=== PATIENT | female | born 1940 | race African-American/Black ===

== ENCOUNTER 2019-05-16 00:10 | Inpatient (IN) ==
[2019-05-16] MEDS ORDERED: *HR* Morphine Immed Rel 15 MG TABLET PO STA (01:10)
--- NOTE | 2019-05-16 01:24 | Emergency Department Note ---
Disposition Clinical Impression: Left-sided chest pain Disposition: Admitted As Inpatient Condition: Fair Time of Disposition: 07:16 General Adult HPI - General Chief complaint: ED Chest Pain Stated complaint: abd pain SoB Time Seen by Provider: 05/16/19 00:24 Source: patient, EMS Mode of arrival: EMS Limitations: no limitations Nursing Notes Reviewed: Yes Vital Signs Reviewed: Yes - History of Present Illness HPI Narrative: 78-year-old female history of COPD on 3 L, sleep apnea on CPAP, and CAD presents an emergency department via EMS as a transfer from [facility] for shortness of breath and abdominal pain. Patient is a poor historian. Past few days patient was initiated on CPAP for apnea and states she has not been tolerating it. Earlier this evening approximately 2 hours prior to arrival she reports having some discomfort and experiencing some shortness of breath and left chest pain. States this is the worse pain she has experienced compared to prior chest pain. Reports of some nausea no vomiting. Denies any fevers or cough. It was reported that her oxygen saturations were in the 90s otherwise stable. She states she is at the nursing facility due to her right leg as she is awesome function to the right lower leg. She denies a history of blood clots but states there is no change in swelling to her lower extremities. Pain Scale: 5 - Related Data Home Medications Medication Instructions Recorded Confirmed Atorvastatin Calcium [Lipitor] 20 mg PO 199901/18/19 05/16/19 Clopidogrel [Plavix] 75 mg PO 0600 01/18/19 05/16/19 Dicyclomine [Bentyl] 10 mg PO TID PRN 01/18/19 05/21/19 Enalapril Maleate [Vasotec] 5 mg PO 0600,1600 01/18/19 05/16/19 Famciclovir 500 mg PO 0600,1600 01/18/19 05/16/19 Fluticasone/Vilanterol [Breo 1 puff IH 1800 01/18/19 05/16/19 Ellipta 200-25 Mcg INH] Melatonin 5 mg PO 199901/18/19 05/16/19 Metoprolol [Lopressor] 25 mg PO 0600,1600 01/18/19 05/16/19 Omeprazole [PriLOSEC] 20 mg PO 0600 01/18/19 05/16/19 Primidone [Mysoline] 50 mg PO 0600,1600 01/18/19 05/16/19 Ropinirole HCl [Requip] 0.5 mg PO 2000 01/18/19 05/16/19 Acetaminophen [Tylenol] 650 mg PO BID PRN 04/11/19 05/16/19 Albuterol Sulfate [Proair Hfa] 2 puff PO Q4H PRN 04/27/19 05/16/19 Nystatin 1 appl TP PRN PRN 04/27/19 05/16/19 Previous Rx's Medication Instructions Recorded Ipratropium/Albuterol Neb [Duoneb] 3 ml IH Q6HR PRN #30 inhsol 05/01/19 Furosemide [Lasix] 20 mg PO BID #14 tablet 05/22/19 predniSONE [PredniSONE] 10 mg PO DAILY #21 tablet 05/22/19 Allergies Allergy/AdvReac Type Severity Reaction Status Date / Time aspirin Allergy Rash Verified 04/27/19 19:24 bee venom protein (honey bee) Allergy Swelling Verified 04/27/19 19:24 of Lip/Tongue/Throat codeine Allergy Rash Verified 04/27/19 19:24 All systems ED: reviewed and negative except as stated. Review of Systems: As Per HPI Constitutional: Denies: fever, chills ENT ED: Denies: congestion Cardiovascular: Denies: chest pain Respiratory: Reports: dyspnea. Denies: cough Gastrointestinal: Reports: abdominal pain, nausea. Denies: vomiting Musculoskeletal: Denies: back pain Integumentary: Denies: rash, abrasion Neurological: Denies: headache Past Medical History - Past Medical History Attestation: Yes The following information was validated with the patient. Source: patient Medical history: Reports: CHF, COPD, GERD, hyperlipidemia, hypertension, other Surgical history: Reports: angioplasty/stent, orthopedic, other, pacemaker/AICD Psychiatric history: Reports: anxiety, depression CIGAR HEAD STRINGER history: Reports: no CIGAR HEAD STRINGER history - Social History Smoking Status: Former smoker Smokeless Tobacco Status: No Alcohol use: Reports: none Drug use: Reports: none Physical Exam - General Limitations: no limitations General appearance: alert, in no apparent distress, obese - Head Head exam: atraumatic, normocephalic, normal inspection - Eye Eye exam: Present: normal appearance, EOMI, other (bilateral exophthalmos) - ENT ENT exam: normal exam, normal oropharynx, mucous membranes moist - Neck Neck exam: Present: normal inspection, full ROM, trachea midline - Chest Chest inspection: Present: normal inspection, symmetric chest wall rise, tenderness (Left lower lateral chest wall), other (Pacemaker in left chest wall) - Respiratory Respiratory exam: Present: normal lung sounds bilaterally. Absent: respiratory distress, wheezes - Cardiovascular Cardiovascular exam: Present: regular rate, normal rhythm, normal heart sounds - Abdominal Exam Abdominal exam: Present: soft, tenderness, normal bowel sounds, scar. Absent: Non-Tender, distention, guarding, rebound, rigidity Abdominal tenderness: Present: LUQ - Extremities Exam Extremities exam: Present: normal inspection, full ROM. Absent: tenderness, pedal edema - Back Exam Back exam: Present: normal inspection, full ROM. Absent: tenderness, CVA tenderness (R), CVA tenderness (L) - Neurological Exam Neurological exam: Present: alert, oriented X3 - Psychiatric Psychiatric exam: Present: normal affect, normal mood - Skin Skin exam: Present: warm, dry, intact, normal color. Absent: rash, cyanosis, diaphoresis Course Course Narrative: Patient is a poor historian but appears she is describing some discomfort in her left lower chest wall with associated shortness of breath that started today. She does have a history of CAD with report to stents. She also has some mild swelling in the right leg. To the left. No history of blood clots. Chest pain workup initiated at this time. Will obtain D-dimer at this time as she is considered low risk without any hypoxia tachycardia or history. - Reevaluation(s) Reevaluation #1: Review for labs are quite unremarkable. She appears to have baseline anemia. Her troponin is less than 0.03. Her D dimer is significantly elevated over 1999 and at this time will obtain a CT scan of her chest. Disposition pending workup. Reevaluation #2: Pain has returned with reports of some nausea. CTA of chest without embolism but reveals coronary artery disease. Patient reports midsternal and left chest wall pain. A repeat EKG was performed and did not reveal any ST elevation. She is allergic to aspirin and will hold off on this at this time. Nitro trial and admission for chest pain evaluation. Time: 05:16 Reevaluation #3: After a total of 2 nitroglycerin symptoms near complete resolution. Her blood pressure did drop down to systolic 90. At this time she is stable for mission to the floor. Recommendation for further evaluation cardiac workup. Her last echo was performed on December 2018. - Consultations Consultation #1: Spoke with on-call hospitalist desiree Saez to admit for left side chest pain. No further orders at this time Vital Signs Temperature 99.1 F 05/16/19 00:14 Pulse Rate 69 05/16/19 00:14 Respiratory Rate 20 05/16/19 00:14 Blood Pressure 126/79 05/16/19 00:14 O2 Sat by Pulse Oximetry 97 05/16/19 00:14 Temperature 97.7 F 05/16/19 07:16 Pulse Rate 78 05/16/19 07:16 Respiratory Rate 18 05/16/19 07:16 Blood Pressure 108/61 05/16/19 07:16 O2 Sat by Pulse Oximetry 92 05/16/19 07:16 Oxygen Delivery Oxygen Delivery Nasal Cannula Medical Decision Making - MDM Narrative Medical decision making narrative: Patient was discussed with my attending physician who agrees with ED management and final disposition. They independently evaluated the patient. Please refer to their attestation to this encounter for additional information. This note was generated by [email or web address] voice recognition software and as a result grammatical or spelling errors may occur using this program. - Medical Records Medical records reviewed: Yes I reviewed the patient's medical records. - Lab Data Lab results reviewed: Yes I reviewed the patient's lab results. Result diagrams: 05/20/19 03:25 05/22/19 06:10 Lab Results 05/16/19 05/16/19 05/16/19 Range/Units 01:43 01:43 01:57 WBC 7.5 (4.3-11.1) K/mcL RBC 3.45 L (3.82-4.97) M/mcL Hgb 11.3 L (11.5-15.4) g/dL Hct 36.7 (35.3-44.9) % MCV 106.4 H (83.0-100.0) fL MCH 32.8 (28.0-33.3) pg MCHC 30.8 L (31.6-35.5) g/dL RDW 14.3 (11.5-14.5) % Plt Count 261 (140-400) K/mcL MPV 9.6 (9.4-12.4) fL Immature Gran % 1.1 (0-4) % Seg Neutrophils % 76.3 % Lymphocytes % 15.0 % Monocytes % 5.6 % Eosinophils % 1.7 % Basophils % 0.3 % Neutrophils # 5.7 (1.6-8.9) K/mcL Lymphocytes # 1.1 (0.6-4.6) K/mcL Monocytes # 0.4 (0.0-1.3) K/mcL Eosinophils # 0.1 (0.0-0.6) K/mcL Basophils # 0.0 (0.0-0.2) K/mcL D-Dimer 2192 H (0-500) ng/mLFEU VBG pH (7.32-7.42) pH Units VBG pCO2 (41-51) mmHg VBG pO2 (25-50) mmHg VBG HCO3 (21-27) mEq/L Sodium 139 (136-145) mEq/L Potassium 4.5 (3.5-5.1) mEq/L Chloride 97 L (98-107) mEq/L Carbon Dioxide 37 H (23-29) mEq/L BUN 14 (8-23) mg/dL Creatinine 0.37 L (0.60-1.20) mg/dL Est GFR ( Amer) > 60 (> 60) Est GFR (Non-Af Amer) > 60 (> 60) BUN/Creatinine Ratio 38 H (6-26) Glucose 102 (70-105) mg/dL Calculated Osmolality 289 (280-300) Calcium 9.8 (8.6-10.3) mg/dL Troponin I < 0.03 (< 0.04) ng/mL Lipase 27 (11-82) Units/L 05/16/19 Range/Units 03:10 WBC (4.3-11.1) K/mcL RBC (3.82-4.97) M/mcL Hgb (11.5-15.4) g/dL Hct (35.3-44.9) % MCV (83.0-100.0) fL MCH (28.0-33.3) pg MCHC (31.6-35.5) g/dL RDW (11.5-14.5) % Plt Count (140-400) K/mcL MPV (9.4-12.4) fL Immature Gran % (0-4) % Seg Neutrophils % % Lymphocytes % % Monocytes % % Eosinophils % % Basophils % % Neutrophils # (1.6-8.9) K/mcL Lymphocytes # (0.6-4.6) K/mcL Monocytes # (0.0-1.3) K/mcL Eosinophils # (0.0-0.6) K/mcL Basophils # (0.0-0.2) K/mcL D-Dimer (0-500) ng/mLFEU VBG pH 7.46 H (7.32-7.42) pH Units VBG pCO2 61 H (41-51) mmHg VBG pO2 59 H (25-50) mmHg VBG HCO3 43 H (21-27) mEq/L Sodium (136-145) mEq/L Potassium (3.5-5.1) mEq/L Chloride (98-107) mEq/L Carbon Dioxide (23-29) mEq/L BUN (8-23) mg/dL Creatinine (0.60-1.20) mg/dL Est GFR ( Amer) (> 60) Est GFR (Non-Af Amer) (> 60) BUN/Creatinine Ratio (6-26) Glucose (70-105) mg/dL Calculated Osmolality (280-300) Calcium (8.6-10.3) mg/dL Troponin I (< 0.04) ng/mL Lipase (11-82) Units/L - Radiology Data Radiology results reviewed: Yes I reviewed the patient's radiology results. Chest X-Ray 05/16/19 01:10 IMPRESSION: Moderate cardiomegaly, vascular congestion, bilateral effusions and scattered pulmonary opacities favoring pulmonary edema. No extrapleural air is noted. Trachea is midline. D/ / Shirlene Cha MD / Shirlene Cha MD Interpreting Provider: Shirlene Cha MD Chest CTA 05/16/19 02:33 IMPRESSION: No evidence of pulmonary embolism. Emphysematous changes in the lungs with bibasilar atelectasis. Cardiomegaly with coronary artery disease. RECOMMENDATIONS: Fleischner Society guidelines for follow-up and management of incidentally detected pulmonary nodules: Single Solid Nodule: Nodule size less than 6 mm In a low-risk patient, no routine follow-up. In a high-risk patient, optional CT at 12 months. - Low risk patients include individuals with minimal or absent history of smoking and other known risk factors. - High risk patients include individuals with a history or smoking or known risk factors. Radiology 2017 http://pubs.rsna.org/doi/full/10.1148/radiol.[email or web address] D/ / Shirlene Cha MD / Shirlene Cha MD Interpreting Provider: Shirlene Cha MD - EKG Data EKG #1 EKG attestation: Yes I reviewed and interpreted this EKG. EKG results narrative: EKG performed 26 atrial paced rhythm 80 beats per minute, right bundle branch block. No significant ST elevation or depression. Compared to prior EKG performed 04/26/2018 with similar consistent findings. No acute ischemic changes. Attestation Statement - Attestation Attestation: I have seen this patient with the resident physician, I have personally evaluated this patient. I had reviewed the chart and document dictation by the resident physician and aM in agreement with the information documented by the resident physician. Please see documentation by the resident physician for complete chart including past medical history, family medical history, review of systems, current history and physical and laboratory and imaging studies. I was present for all procedures, provided direct supervision for all procedu res, was present for the entirety of all procedures and provided direct guidance during the procedures. Please see documentation by the resident physician for any procedures performed. I have reviewed all interpretations of EKGs, and reviewed all EKGs performed on patient's as well. I have also reviewed reports of imaging as provided by radiology.
[2019-05-16 02:17] LABS: Basophils % 0.3 %; Eosinophils # 0.1 K/mcL (0.0-0.6); Eosinophils % 1.7 %; Hematocrit 36.7 % (35.3-44.9); Hemoglobin 11.3 g/dL (11.5-15.4); Immature Granulocytes % 1.1 % (0-4); Lymphocytes # 1.1 K/mcL (0.6-4.6); Mean Corpuscular HGB Conc 30.8 g/dL (31.6-35.5); Mean Corpuscular Hemoglobin 32.8 pg (28.0-33.3); Mean Corpuscular Volume 106.4 fL (83.0-100.0); Mean Platelet Volume 9.6 fL (9.4-12.4); Monocytes # 0.4 K/mcL (0.0-1.3); Monocytes % 5.6 %; Neutrophils # 5.7 K/mcL (1.6-8.9); Platelet Count 261 K/mcL (140-400); Red Blood Count 3.45 M/mcL (3.82-4.97); Red Cell Distribution Width 14.3 % (11.5-14.5); Segmented Neutrophils % 76.3 %; White Blood Count 7.5 K/mcL (4.3-11.1)
[2019-05-16 02:21] LABS: BUN/Creatinine Ratio 38 (6-26); Blood Urea Nitrogen 14 mg/dL (8-23); Calcium 9.8 mg/dL (8.6-10.3); Carbon Dioxide 37 mEq/L (23-29); Chloride 97 mEq/L (98-107); Glucose 102 mg/dL (70-105); Lipase 27 Units/L (11-82); Osmolality,Calculated 289 (280-300); Potassium 4.5 mEq/L (3.5-5.1); Sodium 139 mEq/L (136-145); eGFR For African Americans > 60 (> 60); eGFR For Non-African Americans > 60 (> 60)
[2019-05-16 02:22] LABS: Troponin I < 0.03 ng/mL (< 0.04)
[2019-05-16] MEDS ORDERED: Isovue-370 500 ML BOTTLE IVP ONE (02:33)
[2019-05-16 03:13] LABS: VBG HCO3 43 mEq/L (21-27); VBG PCO2 61 mmHg (41-51); VBG PH 7.46 pH Units (7.32-7.42); VBG PO2 59 mmHg (25-50)
--- NOTE | 2019-05-16 04:23 | Emergency Department Note ---
Disposition Clinical Impression: Left-sided chest pain Disposition: Admitted As Inpatient Condition: Fair Referrals: Alisa Rojas MD [Primary Care Provider] - Forms: ED Satisfaction Letter Time of Disposition: 05:16 General Adult HPI - General Chief complaint: ED Chest Pain Stated complaint: abd pain SoB Time Seen by Provider: 05/16/19 00:24 Source: patient, EMS Mode of arrival: EMS Limitations: no limitations Nursing Notes Reviewed: Yes Vital Signs Reviewed: Yes - History of Present Illness Pain Scale: 5 - Related Data Home Medications Medication Instructions Recorded Confirmed Alendronate Sodium 70 mg PO CARDOZA@0600 01/18/19 05/16/19 Atorvastatin Calcium [Lipitor] 20 mg PO 199901/18/19 05/16/19 Clopidogrel [Plavix] 75 mg PO 0600 01/18/19 05/16/19 Dicyclomine [Bentyl] 10 mg PO PRN PRN 01/18/19 05/16/19 Enalapril Maleate [Vasotec] 5 mg PO 0600,1600 01/18/19 05/16/19 Famciclovir 500 mg PO 0600,1600 01/18/19 05/16/19 Fluticasone/Vilanterol [Breo 1 puff IH 1800 01/18/19 05/16/19 Ellipta 200-25 Mcg INH] Melatonin 5 mg PO 199901/18/19 05/16/19 Metoprolol [Lopressor] 25 mg PO 0600,1600 01/18/19 05/16/19 Omeprazole [PriLOSEC] 20 mg PO 0600 01/18/19 05/16/19 Primidone [Mysoline] 50 mg PO 0600,1600 01/18/19 05/16/19 Ropinirole HCl [Requip] 0.5 mg PO 199901/18/19 05/16/19 Acetaminophen [Tylenol] 650 mg PO BID PRN 04/11/19 05/16/19 Albuterol Sulfate [Proair Hfa] 2 puff PO Q4H PRN 04/27/19 05/16/19 Nystatin 1 appl TP PRN PRN 04/27/19 05/16/19 Rizatriptan Benzoate [Maxalt] 10 mg PO PRN PRN 04/27/19 05/16/19 Previous Rx's Medication Instructions Recorded Ipratropium/Albuterol Neb [Duoneb] 3 ml IH Q6HR PRN #30 inhsol 05/01/19 predniSONE [PredniSONE] 10 mg PO DAILY #26 tablet 05/01/19 Allergies Allergy/AdvReac Type Severity Reaction Status Date / Time aspirin Allergy Rash Verified 04/27/19 19:24 bee venom protein (honey bee) Allergy Swelling Verified 04/27/19 19:24 of Lip/Tongue/Throat codeine Allergy Rash Verified 04/27/19 19:24 Constitutional: Denies: fever, chills ENT ED: Denies: congestion Cardiovascular: Denies: chest pain Respiratory: Reports: dyspnea. Denies: cough Gastrointestinal: Reports: abdominal pain, nausea. Denies: vomiting Musculoskeletal: Denies: back pain Integumentary: Denies: rash, abrasion Neurological: Denies: headache Past Medical History - Past Medical History Medical history: Reports: CHF, COPD, GERD, hyperlipidemia, hypertension, other Surgical history: Reports: angioplasty/stent, orthopedic, other, pacemaker/AICD Psychiatric history: Reports: anxiety, depression CREATIVE SERVICES DIRECTOR history: Reports: no CREATIVE SERVICES DIRECTOR history - Social History Smoking Status: Former smoker Smokeless Tobacco Status: No Alcohol use: Reports: none Drug use: Reports: none Physical Exam - General Limitations: no limitations General appearance: alert, in no apparent distress, obese Course Vital Signs Temperature 99.1 F 05/16/19 00:14 Pulse Rate 69 05/16/19 00:14 Respiratory Rate 20 05/16/19 00:14 Blood Pressure 126/79 05/16/19 00:14 O2 Sat by Pulse Oximetry 97 05/16/19 00:14 Temperature 99.1 F 05/16/19 00:14 Pulse Rate 79 05/16/19 05:10 Respiratory Rate 18 05/16/19 05:10 Blood Pressure 139/107 05/16/19 05:10 O2 Sat by Pulse Oximetry 91 05/16/19 05:10 Oxygen Delivery Oxygen Delivery Nasal Cannula Medical Decision Making - Lab Data Result diagrams: 05/16/19 01:43 05/16/19 01:43 Lab Results 05/16/19 05/16/19 05/16/19 Range/Units 01:43 01:43 01:57 WBC 7.5 (4.3-11.1) K/mcL RBC 3.45 L (3.82-4.97) M/mcL Hgb 11.3 L (11.5-15.4) g/dL Hct 36.7 (35.3-44.9) % MCV 106.4 H (83.0-100.0) fL MCH 32.8 (28.0-33.3) pg MCHC 30.8 L (31.6-35.5) g/dL RDW 14.3 (11.5-14.5) % Plt Count 261 (140-400) K/mcL MPV 9.6 (9.4-12.4) fL Immature Gran % 1.1 (0-4) % Seg Neutrophils % 76.3 % Lymphocytes % 15.0 % Monocytes % 5.6 % Eosinophils % 1.7 % Basophils % 0.3 % Neutrophils # 5.7 (1.6-8.9) K/mcL Lymphocytes # 1.1 (0.6-4.6) K/mcL Monocytes # 0.4 (0.0-1.3) K/mcL Eosinophils # 0.1 (0.0-0.6) K/mcL Basophils # 0.0 (0.0-0.2) K/mcL D-Dimer 2192 H (0-500) ng/mLFEU VBG pH (7.32-7.42) pH Units VBG pCO2 (41-51) mmHg VBG pO2 (25-50) mmHg VBG HCO3 (21-27) mEq/L Sodium 139 (136-145) mEq/L Potassium 4.5 (3.5-5.1) mEq/L Chloride 97 L (98-107) mEq/L Carbon Dioxide 37 H (23-29) mEq/L BUN 14 (8-23) mg/dL Creatinine 0.37 L (0.60-1.20) mg/dL Est GFR ( Amer) > 60 (> 60) Est GFR (Non-Af Amer) > 60 (> 60) BUN/Creatinine Ratio 38 H (6-26) Glucose 102 (70-105) mg/dL Calculated Osmolality 289 (280-300) Calcium 9.8 (8.6-10.3) mg/dL Troponin I < 0.03 (< 0.04) ng/mL Lipase 27 (11-82) Units/L 05/16/19 Range/Units 03:10 WBC (4.3-11.1) K/mcL RBC (3.82-4.97) M/mcL Hgb (11.5-15.4) g/dL Hct (35.3-44.9) % MCV (83.0-100.0) fL MCH (28.0-33.3) pg MCHC (31.6-35.5) g/dL RDW (11.5-14.5) % Plt Count (140-400) K/mcL MPV (9.4-12.4) fL Immature Gran % (0-4) % Seg Neutrophils % % Lymphocytes % % Monocytes % % Eosinophils % % Basophils % % Neutrophils # (1.6-8.9) K/mcL Lymphocytes # (0.6-4.6) K/mcL Monocytes # (0.0-1.3) K/mcL Eosinophils # (0.0-0.6) K/mcL Basophils # (0.0-0.2) K/mcL D-Dimer (0-500) ng/mLFEU VBG pH 7.46 H (7.32-7.42) pH Units VBG pCO2 61 H (41-51) mmHg VBG pO2 59 H (25-50) mmHg VBG HCO3 43 H (21-27) mEq/L Sodium (136-145) mEq/L Potassium (3.5-5.1) mEq/L Chloride (98-107) mEq/L Carbon Dioxide (23-29) mEq/L BUN (8-23) mg/dL Creatinine (0.60-1.20) mg/dL Est GFR ( Amer) (> 60) Est GFR (Non-Af Amer) (> 60) BUN/Creatinine Ratio (6-26) Glucose (70-105) mg/dL Calculated Osmolality (280-300) Calcium (8.6-10.3) mg/dL Troponin I (< 0.04) ng/mL Lipase (11-82) Units/L Attestation Statement - Attestation Attestation: I have seen this patient with the resident physician, I have personally evaluated this patient. I had reviewed the chart and document dictation by the resident physician and aM in agreement with the information documented by the resident physician. Please see documentation by the resident physician for complete chart including past medical history, family medical history, review of systems, current history and physical and laboratory and imaging studies. I was present for all procedures, provided direct supervision for all procedures, was present for the entirety of all procedures and provided direct guidance during the procedures. Please see documentation by the resident physician for any procedures performed. I have reviewed all interpretations of EKGs, and reviewed all EKGs performed on patient's as well. I have also reviewed reports of imaging as provided by radiology. Patient presented emergency department with chief complaint of left-sided chest pain, just at her rib level, she states that seems to be more in her chest and her abdomen but is right at the left anterior region of her lower ribs. She states that it seemed to start him 11:00 tonight, and associates this with being started on new CPAP and this seemed to bother her but states that she is not sure. She states that it continues to hurt even now she is off CPAP. The patient states she maybe feels little bit short of breath. She describes a sharp pain but also achy pain. It is nonradiating. She states maybe she feels a little dizzy. She denies headache or neck pain or jaw pain. She states she always feels short of breath secondary to her history of COPD and CHF states that it is not really different or worse in that regard. She denies significant nausea vomiting diarrhea or black or bloody stool. She denies any acute lower extremity swelling, she states that she has had some right lower extremity swelling for quite a while, and states that she is in a correction facility currently secondary to problems with her right leg strength in her ability to walk but she has not had any history of blood clots in the past she has not noticed any increased swelling of her legs. She has had no new calf pain. She denies fevers or chills. She does report that she has recently been hospitalized several times but she is not quite sure exactly for what she states that it has been for different things for pneumonia for which she reports is potential heart attacks. She states she has been admitted at least 5 times in the last few months. On physical examination she is alert and oriented 3, nontoxic in appearance in no respiratory distress. Lungs are slightly diminished at the bases bilaterally , no focal rales rhonchi or crackles noted. No obvious JVD but somewhat limited by body habitus. Cardiovascular regular rhythm, 2/6 systolic murmur, there is a pacemaker palpable in the left chest wall is nontender. Her lower chest on the left is at least somewhat tender, and at least partially reproduces her pain with palpation. No evidence of zoster on the chest. There is an occasional auscultated PAC on exam. Abdomen is soft, no significant tenderness of the abdomen, and tenderness seems primarily palpable above the level of the ribs. Bilateral lower extremities reveal no significant edema, there is slight right lower extremity edema compared to the left, measuring approximately 1 cm greater diameter there is no calf tenderness there is no warmth there is no erythema there is no palpable cord there is no Homans sign. EKG demonstrated both sinus beats and atrial paced complexes, with a right bundle-branch block pattern, compared to prior EKG there is no acute change. No acute ST elevation or ST depression, stable T-wave inversion in V3 consistent with right bundle. CBC basic metabolic profile cardiac enzymes were all within acceptable limits d- dimer was elevated at over 2000 she was sent for a CT scan of the chest, which demonstrated no PE, positive emphysema changes with bibasilar atelectasis cardiomegaly with coronary artery disease. Patient was given oral morphine for pain improvement of her symptoms. Secondary to patient's were explained left-sided chest pain no recent cardiac evaluation apart from an echocardiogram 4 months ago, with a history of coronary artery disease, with a history of pacemaker, with left-sided chest pain and dizziness, with recurrence now of her chest pain after morphine, she will be admitted to the hospital for further evaluation and management of left-sided chest pain.
[2019-05-16] MEDS ORDERED: Ondansetron 4 MG/2 ML VIAL IVP ONE (04:58)
[2019-05-16] MEDS: Nitroglycerin 0.4 MG TAB.SUBL SL PRN ×2 (05:09→05:19)
[2019-05-16] MEDS ORDERED: *HR* Midazolam HCl 5 MG/5 ML VIAL IVP ONE ×2 (09:10→18:11)
[2019-05-16] MEDS ORDERED: *HR* Etomidate 20 MG/10 ML AMPUL IVP ONE (09:10)
[2019-05-16] MEDS ORDERED: Naloxone 0.4 MG/ML INJ ONE (09:59)
[2019-05-16] MEDS: Naloxone 0.4 MG/ML INJ IVP PRN ×5 (10:11→16:09)
[2019-05-16] MEDS ORDERED: Acetaminophen 325 MG TABLET PO PRN (10:26)
--- NOTE | 2019-05-16 10:38 | Internal Med History&Physical ---
<Alisa Ellsworth - Last Filed: 05/16/19 13:43> Date of Encounter: 05/16/19 Time of Encounter: 10:29 Internal Medicine - H&P: HPI Chief complaint: chest pain Admitted From: Emergency Dept Plans for Post Hospital Care: [facility] History of present illness: Ms. Abbott is a 78 year old female with PMHx of diastolic CHF, HTN, HLD, COPD (on 2L home oxygen), CAD. patient presented from [facility] to ED with chief complaint of chest pain. Upon my evaluation, patient was very obtunded and was very minimally responsive. She did not respond to sternal rub. She received one dose of Narcan and was more awake but did not answer questions appropriately and was thus a poor historian. Per nursing reports, this is not her baseline. Her baseline is that she is able to talk, answer question and interact with others. Per ED documentation, patient was having left sided chest pain that was worse compared to her prior chest pain with oxygen saturations in the 90s. In Ed, she recieved PO morphine, and nitroglycerin x2 and was admitted for further workup of chest pain. Past Med Surg Social Fam HX - Past Medical History Medical history: CHF, COPD, GERD, hyperlipidemia, hypertension, other Additional medical history: IBS, AAA, restless leg syndrome Psychiatric history: anxiety, depression - Past Surgical History Surgical History: angioplasty/stent, orthopedic, other, pacemaker/AICD Additional surgical history: LTKA, RTSA, left femur corinna. - Social History Smoking Status: Former smoker Smokeless Tobacco Status: No Alcohol use: none Drug use: none - Family History Mother Adopted: Yes Father Adopted: Yes Internal Medicine - H&P: Meds Alendronate Sodium 70 mg PO CARDOZA@0600 01/18/19 [History] Atorvastatin Calcium [Lipitor] 20 mg PO 199901/18/19 [History] Clopidogrel [Plavix] 75 mg PO 0600 01/18/19 [History] Dicyclomine [Bentyl] 10 mg PO PRN PRN 01/18/19 [History] Enalapril Maleate [Vasotec] 5 mg PO 0600,1600 01/18/19 [History] Famciclovir 500 mg PO 0600,1600 01/18/19 [History] Fluticasone/Vilanterol [Breo Ellipta 200-25 Mcg INH] 1 puff IH 1800 01/18/19 [History] Melatonin 5 mg PO 199901/18/19 [History] Metoprolol [Lopressor] 25 mg PO 0600,1600 01/18/19 [History] Omeprazole [PriLOSEC] 20 mg PO 0600 01/18/19 [History] Primidone [Mysoline] 50 mg PO 0600,1600 01/18/19 [History] Ropinirole HCl [Requip] 0.5 mg PO 199901/18/19 [History] Acetaminophen [Tylenol] 650 mg PO BID PRN 04/11/19 [History] Albuterol Sulfate [Proair Hfa] 2 puff PO Q4H PRN 04/27/19 [History] Nystatin 1 appl TP PRN PRN 04/27/19 [History] Rizatriptan Benzoate [Maxalt] 10 mg PO PRN PRN 04/27/19 [History] Ipratropium/Albuterol Neb [Duoneb] 3 ml IH Q6HR PRN #30 inhsol 05/01/19 [Rx] Allergy/AdvReac Type Severity Reaction Status Date / Time aspirin Allergy Rash Verified 04/27/19 19:24 bee venom protein (honey bee) Allergy Swelling Verified 04/27/19 19:24 of Lip/Tongue/Throat codeine Allergy Rash Verified 04/27/19 19:24 ROS unobtainable: due to mental status All Systems PM: A 10-system review of systems was performed and is negative for pertinent findings except as documented above in the HPI. - Constitutional Vitals: Temp Pulse Resp BP Pulse Ox 97.7 F 78 18 108/61 92 05/16/19 07:16 05/16/19 07:16 05/16/19 07:16 05/16/19 07:16 05/16/19 07:16 Exam: intermittently alert. minimally responsive . - Head Head exam: Present: atraumatic, normocephalic - Neck Neck exam general surgery: Present: supple, trachea midline - Respiratory Respiratory exam: Present: CTAB - Cardiovascular Cardiovascular exam: Present: RRR, +S1, +S2. Absent: gallop, rubs, systolic murmur - GI/Abdominal GI/Abdominal exam: Present: normal bowel sounds, soft. Absent: distended, tenderness - Extremities Exam Extremities exam: Absent: cyanotic, pedal edema - Neurological Exam Neurological exam: Present: alert Additional comments: minimally responsive, intermittently alert. does not answer questions properly. - Skin Skin exam: Present: intact, normal color Internal Med - H&P Results - Labs CBC & Chem 7: 05/16/19 01:43 05/16/19 01:43 Labs: Short CBC 05/16/19 Range/Units 01:43 WBC 7.5 (4.3-11.1) K/mcL Hgb 11.3 L (11.5-15.4) g/dL Hct 36.7 (35.3-44.9) % Plt Count 261 (140-400) K/mcL Neutrophils # 5.7 (1.6-8.9) K/mcL BMP 05/16/19 01:43 Sodium 139 Potassium 4.5 Chloride 97 L Carbon Dioxide 37 H BUN 14 Creatinine 0.37 L Glucose 102 Calcium 9.8 Cardiac Enzymes 05/16/19 Range/Units 01:43 Troponin I < 0.03 (< 0.04) ng/mL - ABG Interpretation ABG results: 05/16/19 03:10 VBG pH 7.46 H VBG pCO2 61 H VBG pO2 59 H VBG HCO3 43 H - Impressions ITS Impressions Chest X-Ray 05/16/19 01:10 IMPRESSION: Moderate cardiomegaly, vascular congestion, bilateral effusions and scattered pulmonary opacities favoring pulmonary edema. No extrapleural air is noted. Trachea is midline. D/ / Shirlene Cha MD / Shirlene Cha MD Interpreting Provider: Shirlene Cha MD Chest CTA 05/16/19 02:33 IMPRESSION: No evidence of pulmonary embolism. Emphysematous changes in the lungs with bibasilar atelectasis. Cardiomegaly with coronary artery disease. Mild mediastinal adenopathy. Ill-defined focal nodule. RECOMMENDATIONS: Fleischner Society guidelines for follow-up and management of incidentally detected pulmonary nodules: Single Solid Nodule: Nodule size less than 6 mm In a low-risk patient, no routine follow-up. In a high-risk patient, optional CT at 12 months. - Low risk patients include individuals with minimal or absent history of smoking and other known risk factors. - High risk patients include individuals with a history or smoking or known risk factors. Radiology 2017 http://pubs.rsna.org/doi/full/10.1148/radiol.6983096552 D/ / Shirlene Cha MD / Shirlene Cha MD Interpreting Provider: Shirlene Cha MD - Assessment and Plan (1) Acute on chronic respiratory failure with hypoxia and hypercapnia Current Visit: Yes Status: Acute Assessment and plan: patient was very minimally responsive since arrival to the floor from ED and was not responding to sternal rub. Around 10:00 patient was evaluated at bedside and was minimally interactive upon conversation. she received narcan x2, and her response was minimal. ABG was ordered and showed CO2 130. patient was transferred to ICU stat and critical care team was consulted. head CT ordered etiology of unresponsiness likely secondary to acute on chronic respiratory failure from CO2 narcosis patient has been admitted before to hospital with prior CO2>150 appreciate recs from critical care and social work team. (2) Chest pain Current Visit: No Status: Acute Assessment and plan: per ED reports, patient arrived from correction with left sided chest pain. EKG reviewed D dimer elevated. patient minimally responsive, unable to give good history CTA showed no evidence of PE. There was emphysematous changes in lungs with bibasilar atalectasis. last echo from 01/17/19 showed EF 55-60% with LV wall thickness not well obta ined, gross basal septal hypertrophy, mild LV diastolic dysfunction, mild tricuspid regurgitation, no pulmonary hypertation. Plan: trend troponins. Qualifiers: Chest pain type: pleurodynia Qualified Code(s): R07.81 - Pleurodynia (3) Unresponsive episode Current Visit: No Status: Resolved Assessment and plan: plan as above (4) CAD (coronary artery disease) Current Visit: No Status: Chronic Qualifiers: Coronary Disease-Associated Artery/Lesion type: [place] artery [place] vs. transplanted heart: [place] heart Associated angina: without angina Qualified Code(s): I25.10 - Atherosclerotic heart disease of [place] coronary artery without angina pectoris (5) CHF (congestive heart failure) Current Visit: No Status: Acute Assessment and plan: not in acute exacerbation. continue to monitor. Qualifiers: Heart failure type: diastolic Heart failure chronicity: unspecified Qualified Code(s): I50.30 - Unspecified diastolic (congestive) heart failure (6) DVT prophylaxis Current Visit: No Status: Acute Assessment and plan: heparin SQ - Time Spent With Patient Total time spent is greater than 50% in coordination of care (as documented) at patient's floor/unit and/or counseling patient: <Hilary Jefferson Z - Last Filed: 05/17/19 11:27> Date of Encounter: 05/16/19 Internal Medicine - H&P: HPI History of present illness: Ms. Abbott is a 78 year old female All Systems PM: A 10-system review of systems was performed and is negative for pertinent findin gs except as documented above in the HPI. - Constitutional Vitals: Temp Pulse Resp BP Pulse Ox 99.4 F 83 20 118/65 94 05/17/19 04:20 05/17/19 11:00 05/17/19 11:00 05/17/19 11:00 05/17/19 11:00 Internal Med - H&P Results - Labs CBC & Chem 7: 05/17/19 04:00 05/17/19 04:00 Labs: Short CBC 05/17/19 Range/Units 04:00 WBC 8.3 (4.3-11.1) K/mcL Hgb 11.3 L (11.5-15.4) g/dL Hct 37.4 (35.3-44.9) % Plt Count 273 (140-400) K/mcL Neutrophils # 7.8 (1.6-8.9) K/mcL BMP 05/17/19 04:00 Sodium 142 Potassium 4.5 Chloride 94 L Carbon Dioxide 37 H BUN 20 Creatinine 0.59 L Glucose 127 H Calcium 10.0 Cardiac Enzymes 05/16/19 05/16/19 Range/Units 10:38 16:05 Troponin I < 0.03 < 0.03 (< 0.04) ng/mL - ABG Interpretation ABG results: 05/16/19 05/16/19 05/16/19 03:10 11:17 12:57 ABG pH 7.11 L* 7.15 L* ABG pCO2 130 H* 131 H* ABG pO2 102 86 ABG HCO3 41 H 46 H ABG Total CO2 45 H 50 H ABG O2 Saturation 94 L 91 L ABG Base Excess 6 H 11 H VBG pH 7.46 H VBG pCO2 61 H VBG pO2 59 H VBG HCO3 43 H 05/16/19 05/16/19 05/17/19 15:28 19:41 04:06 ABG pH 7.21 L 7.42 D 7.55 H ABG pCO2 111 H* D 67 H D 46 H ABG pO2 82 L 55 L 64 L ABG HCO3 44 H 44 H 40 H ABG Total CO2 48 H 46 H 42 H ABG O2 Saturation 92 L 87 L 94 L ABG Base Excess 11 H 16 H 16 H VBG pH VBG pCO2 VBG pO2 VBG HCO3 - Impressions ITS Impressions Chest X-Ray 05/16/19 01:10 IMPRESSION: Moderate cardiomegaly, vascular congestion, bilateral effusions and scattered pulmonary opacities favoring pulmonary edema. No extrapleural air is noted. Trachea is midline. D/ / Shirlene Cha MD / Shirlene Cha MD Interpreting Provider: Shirlene Cha MD Chest CTA 05/16/19 02:33 IMPRESSION: No evidence of pulmonary embolism. Emphysematous changes in the lungs with bibasilar atelectasis. Cardiomegaly with coronary artery disease. Mild mediastinal adenopathy. Ill-defined focal nodule. RECOMMENDATIONS: Fleischner Society guidelines for follow-up and management of incidentally detected pulmonary nodules: Single Solid Nodule: Nodule size less than 6 mm In a low-risk patient, no routine follow-up. In a high-risk patient, optional CT at 12 months. - Low risk patients include individuals with minimal or absent history of smoking and other known risk factors. - High risk patients include individuals with a history or smoking or known risk factors. Radiology 2017 http://pubs.rsna.org/doi/full/10.1148/radiol.5483771704 D/ / Shirlene Cha MD / Shirlene Cha MD Interpreting Provider: Shirlene Cha MD Head CT 05/16/19 10:58 IMPRESSION: No acute intracranial abnormality. Mild senescent changes. D/ / Rebel Montemayor / Rebel Montemayor Interpreting Provider: Rebel Montemayor Chest X-Ray 05/16/19 18:05 IMPRESSION: 1. Chest radiograph: Findings of congestive heart failure with unchanged bibasilar consolidation and bilateral pleural effusion comparing with study performed earlier today. 2. Calcific atherosclerosis aorta. 3. Cardiomegaly. 4. KUB: Unremarkable bowel gas pattern. 5. NG tube extends below the left hemidiaphragm, into the upper abdomen, tip overlying the expected level of the stomach, left upper quadrant. D/ / Rebel Montemayor / Rebel Montemayor Interpreting Provider: Rebel Montemayor X-Ray 05/16/19 18:15 IMPRESSION: 1. Chest radiograph: Findings of congestive heart failure with unchanged bibasilar consolidation and bilateral pleural effusion comparing with study performed earlier today. 2. Calcific atherosclerosis aorta. 3. Cardiomegaly. 4. KUB: Unremarkable bowel gas pattern. 5. NG tube extends below the left hemidiaphragm, into the upper abdomen, tip overlying the expected level of the stomach, left upper quadrant. D/ / Rebel Montemayor / Rebel Montemayor Interpreting Provider: Rebel Montemayor - Summary of Assessment and Plan Summary of Assessment and Plan: I performed a history and physical examination of the patient and discussed his management with the resident. I reviewed the residents note and agree with the documented findings and plan of care. - Time Spent With Patient Total time spent is greater than 50% in coordination of care (as documented) at patient's floor/unit and/or counseling patient: - Attending Attestation I performed a history and physical examination of the patient and discussed his management with the resident. I reviewed the residents note and agree with the documented findings and plan of care.
[2019-05-16 11:27] LABS: ABG Base Excess 6 mEq/L (-2 to 3); ABG HCO3 41 mEq/L (21-27); ABG Oxygen Saturation 94 % (95-98); ABG PCO2 130 mmHg (35-45); ABG PH 7.11 pH Units (7.32-7.45); ABG PO2 102 mmHg (85-104); ABG TCO2 45 mEq/L (20-26)
--- NOTE | 2019-05-16 11:49 | Pulmonology Consult Note ---
<Loco Tabor S - Last Filed: 05/16/19 17:01> Date of Encounter: 05/16/19 Time of Encounter: 14:34 Assessment and Plan (1) Acute on chronic respiratory failure with hypoxia and hypercapnia Current Visit: Yes Status: Acute Patient arrived to the ICU around noon today after being found nonresponsive and hypoxic - received two doses of narcan - ABG showed a pH of 7.11 and pCO2 of 130 Troponin negative D-dimer elevated at [address] chest negative for pulmonary embolism, emphysematous changes in the lungs with bibasilar atelectasis, cardiomegaly, CAD At this time the pt remains afebrile, no white count, no evidence of infxn causing AECOPD and respiratory failure, will not start abx at this time Repeat ABG showing pH 7.21, pCO2 111, pO2 82, HCO3 44 Plan: - EPIV insertion - monitoring in ICU - BiPAP prn and hs - IV solumedrol q8hr - [facility] - respiratory infxn panel pending - will continue to monitor breathing status and plan to transfer back to floor if stable tomorrow (2) CHF (congestive heart failure) Current Visit: No Status: Acute NOT in acute exacerbation. Previous ECHO from Dec 2018 showing LVEF 55-60%. LV wall thickness not well obtained. Grossly, there is basal septal hypertrophy. Qualifiers: Heart failure type: diastolic Heart failure chronicity: unspecified Qualified Code(s): I50.30 - Unspecified diastolic (congestive) heart failure (3) DVT prophylaxis Current Visit: Yes Status: Acute sq heparin (4) Pulmonary nodule Current Visit: No Status: Acute Noted on CT scan of chest. Needs outpatient follow up. (5) Weakness generalized Current Visit: No Status: Acute PTOT consulted. SW consulted. (6) COPD exacerbation Current Visit: Yes Status: Acute See plan as above. Possibly viral in origin. (7) Left-sided chest pain Current Visit: Yes Status: Acute Per the ED reports, [facility] sided [facility]. EKG reviewed, no acute changes D dimer elevated at 2192 Troponin negative x3 CTA showed no evidence of PE. There was emphysematous changes in lungs with bibasilar atalectasis. Last echo from 01/17/19 showed EF 55-60% with LV wall thickness not well obtained, gross basal septal hypertrophy, mild LV diastolic dysfunction, mild tricuspid regurgitation, no pulmonary hypertation. Will monitor in ICU overnight and likely move out to floor if maintaining airway. History of Present Illness Consult date: 05/16/19 Requesting physician: Alisa Ellsworth Reason for consult: COPD, other (acute respiratory failure) Chief complaint: chest pain History of present illness: Ms. Abbott is a 78yo female with PMH of CHF, COPD, GERD, hyperlipidemia, hypertension, and restless leg syndrome. At home she wears 2 L oxygen. She is presenting from [facility] to ED with chief complaint of chest pain. She was seen by Dr. Ellsworth and brought emergently to the ICU in respiratory distress on BiPAP. Per review of the chart, she came to the ER and was having left sided chest pain that was worse compared to her prior chest pain with oxygen saturations in the 90s. In ED, she recieved PO morphine, and nitroglycerin x2 and was admitted for further workup of chest pain. Troponin negative. Upon evaluation by hospitalist team, she was obtunded and was very minimally responsive. She did not respond to sternal rub. She received one dose of Narcan and was more awake but did not answer questions appropriately and was thus a poor historian. Per nursing reports, this is not her baseline. Her baseline is that she is able to talk, answer question and interact with others. She was stabilized with increased oxygenation on BiPAP and will be observed in the ICU in case of need for emergent intubation. Per chart review, she has had previous episodes of similar presentations requiring intubation. Past Med Surg Social Fam HX - Past Medical History Medical history: CHF, COPD, GERD, hyperlipidemia, hypertension, other Additional medical history: IBS, AAA, restless leg syndrome Psychiatric history: anxiety, depression - Past Surgical History Surgical History: angioplasty/stent, orthopedic, other, pacemaker/AICD Additional surgical history: LTKA, RTSA, left femur corinna. - Social History Smoking Status: Former smoker Smokeless Tobacco Status: No Alcohol use: none Drug use: none - Family History Mother Adopted: Yes Father Adopted: Yes Medications and Allergies Alendronate Sodium 70 mg PO CARDOZA@0600 01/18/19 [History] Atorvastatin Calcium [Lipitor] 20 mg PO 199901/18/19 [History] Clopidogrel [Plavix] 75 mg PO 0600 01/18/19 [History] Dicyclomine [Bentyl] 10 mg PO PRN PRN 01/18/19 [History] Enalapril Maleate [Vasotec] 5 mg PO 0600,1600 01/18/19 [History] Famciclovir 500 mg PO 0600,1600 01/18/19 [History] Fluticasone/Vilanterol [Breo Ellipta 200-25 Mcg INH] 1 puff IH 1800 01/18/19 [History] Melatonin 5 mg PO 199901/18/19 [History] Metoprolol [Lopressor] 25 mg PO 0600,1600 01/18/19 [History] Omeprazole [PriLOSEC] 20 mg PO 0600 01/18/19 [History] Primidone [Mysoline] 50 mg PO 0600,1600 01/18/19 [History] Ropinirole HCl [Requip] 0.5 mg PO 199901/18/19 [History] Acetaminophen [Tylenol] 650 mg PO BID PRN 04/11/19 [History] Albuterol Sulfate [Proair Hfa] 2 puff PO Q4H PRN 04/27/19 [History] Nystatin 1 appl TP PRN PRN 04/27/19 [History] Rizatriptan Benzoate [Maxalt] 10 mg PO PRN PRN 04/27/19 [History] Ipratropium/Albuterol Neb [Duoneb] 3 ml IH Q6HR PRN #30 inhsol 05/01/19 [Rx] Allergy/AdvReac Type Severity Reaction Status Date / Time aspirin Allergy Rash Verified 04/27/19 19:24 bee venom protein (honey bee) Allergy Swelling Verified 04/27/19 19:24 of Lip/Tongue/Throat codeine Allergy Rash Verified 04/27/19 19:24 ROS unobtainable: due to mental status All Systems: The remainder of the systems were reviewed and are negative Physical Examination Vital Signs: Vital Signs, Last 4 Hours Resp Pulse Ox 05/16/19 11:20 14 92 General appearance: lethargic, appears uncomfortable Eyes: nonicteric ENT: oropharynx dry Effort: very labored Auscultation: bilateral: diminished breath sounds Cardiovascular: regular rate and rhythm Gastrointestinal: soft, non-tender, non-distended Integumentary: normal Extremities: no edema, no clubbing, pink and warm Musculoskeletal: no deformities unable to assess due to mental status anxious Results - Laboratory Findings CBC and BMP: 05/16/19 01:43 05/16/19 01:43 ABG ABG pH 7.11 pH Units (7.32-7.45) L* 05/16/19 11:17 ABG pCO2 130 mmHg (35-45) H* 05/16/19 11:17 ABG pO2 102 mmHg (85-104) 05/16/19 11:17 ABG O2 Saturation 94 % (95-98) L 05/16/19 11:17 PT/INR, D-dimer 2192 ng/mLFEU (0-500) H 05/16/19 01:57 Abnormal lab findings: Abnormal lab results RBC 3.45 M/mcL (3.82-4.97) L 05/16/19 01:43 Hgb 11.3 g/dL (11.5-15.4) L 05/16/19 01:43 MCV 106.4 fL (83.0-100.0) H 05/16/19 01:43 MCHC 30.8 g/dL (31.6-35.5) L 05/16/19 01:43 2192 ng/mLFEU (0-500) H 05/16/19 01:57 ABG pH 7.11 pH Units (7.32-7.45) L* 05/16/19 11:17 ABG pCO2 130 mmHg (35-45) H* 05/16/19 11:17 ABG HCO3 41 mEq/L (21-27) H 05/16/19 11:17 ABG Total CO2 45 mEq/L (20-26) H 05/16/19 11:17 ABG O2 Saturation 94 % (95-98) L 05/16/19 11:17 ABG Base Excess 6 mEq/L (-2 to 3) H 05/16/19 11:17 VBG pH 7.46 pH Units (7.32-7.42) H 05/16/19 03:10 VBG pCO2 61 mmHg (41-51) H 05/16/19 03:10 VBG pO2 59 mmHg (25-50) H 05/16/19 03:10 VBG HCO3 43 mEq/L (21-27) H 05/16/19 03:10 Chloride 97 mEq/L (98-107) L 05/16/19 01:43 Carbon Dioxide 37 mEq/L (23-29) H 05/16/19 01:43 0.37 mg/dL (0.60-1.20) L 05/16/19 01:43 38 (6-26) H 05/16/19 01:43 - Clinical Findings Intake & Output: Intake & Output 05/15/19 05/16/19 05/16/19 23:59 07:59 15:59 Weight 80.7 kg Consult Discharge Plan - Plan Referrals: Alisa Rojas MD [Primary Care Provider] - 05/22/19 10:30 am <Chante Sam - Last Filed: 05/16/19 23:24> Date of Encounter: 05/16/19 All Systems: The remainder of the systems were reviewed and are negative Physical Examination Vital Signs: Vital Signs, Last 4 Hours Pulse Resp BP Pulse Ox 05/16/19 22:00 69 14 138/59 97 05/16/19 21:08 15 99 05/16/19 21:00 75 16 99/60 100 05/16/19 20:00 62 14 101/52 97 05/16/19 19:33 14 116/56 96 Ventilator Settings Ventilator Settings: Ventilator Settings, Last 8 Hours Ventilator Tidal Volume 450 Setting Ventilator Tidal Volume 450 Setting Ventilator Tidal Volume 450 Setting Ventilator Tidal Volume 450 Setting Ventilator Tidal Volume 450 Setting Ventilator Tidal Volume 450 Setting Ventilator Tidal Volume 450 Setting Ventilator Tidal Volume 450 Setting Ventilator Respiratory Rate 14 Setting Ventilator Respiratory Rate 14 Setting Ventilator Respiratory Rate 14 Setting Ventilator Respiratory Rate 14 Setting Ventilator Respiratory Rate 14 Setting Ventilator Respiratory Rate 14 Setting Ventilator Respiratory Rate 14 Setting Ventilator Respiratory Rate 14 Setting Actual Respiratory Rate 14 Actual Respiratory Rate 15 Actual Respiratory Rate 16 Actual Respiratory Rate 14 Actual Respiratory Rate 14 Actual Respiratory Rate 14 Actual Respiratory Rate 14 Positive End Expiratory 5 Pressure Positive End Expiratory 5 Pressure Positive End Expiratory 5 Pressure Positive End Expiratory 5 Pressure Positive End Expiratory 5 Pressure Positive End Expiratory 5 Pressure Positive End Expiratory 5 Pressure Positive End Expiratory 5 Pressure Peak Inspiratory Airway 22 Pressure Peak Inspiratory Airway 23 Pressure Peak Inspiratory Airway 25 Pressure Results - Laboratory Findings CBC and BMP: 05/16/19 01:43 05/16/19 01:43 ABG ABG pH 7.42 pH Units (7.32-7.45) D 05/16/19 19:41 ABG pCO2 67 mmHg (35-45) H D 05/16/19 19:41 ABG pO2 55 mmHg (85-104) L 05/16/19 19:41 ABG O2 Saturation 87 % (95-98) L 05/16/19 19:41 PT/INR, D-dimer 2192 ng/mLFEU (0-500) H 05/16/19 01:57 Abnormal lab findings: Abnormal lab results RBC 3.45 M/mcL (3.82-4.97) L 05/16/19 01:43 Hgb 11.3 g/dL (11.5-15.4) L 05/16/19 01:43 MCV 106.4 fL (83.0-100.0) H 05/16/19 01:43 MCHC 30.8 g/dL (31.6-35.5) L 05/16/19 01:43 2192 ng/mLFEU (0-500) H 05/16/19 01:57 ABG pH 7.21 pH Units (7.32-7.45) L 05/16/19 15:28 ABG pCO2 67 mmHg (35-45) H D 05/16/19 19:41 ABG pO2 55 mmHg (85-104) L 05/16/19 19:41 ABG HCO3 44 mEq/L (21-27) H 05/16/19 19:41 ABG Total CO2 46 mEq/L (20-26) H 05/16/19 19:41 ABG O2 Saturation 87 % (95-98) L 05/16/19 19:41 ABG Base Excess 16 mEq/L (-2 to 3) H 05/16/19 19:41 VBG pH 7.46 pH Units (7.32-7.42) H 05/16/19 03:10 VBG pCO2 61 mmHg (41-51) H 05/16/19 03:10 VBG pO2 59 mmHg (25-50) H 05/16/19 03:10 VBG HCO3 43 mEq/L (21-27) H 05/16/19 03:10 Chloride 97 mEq/L (98-107) L 05/16/19 01:43 Carbon Dioxide 37 mEq/L (23-29) H 05/16/19 01:43 0.37 mg/dL (0.60-1.20) L 05/16/19 01:43 38 (6-26) H 05/16/19 01:43 - Clinical Findings Intake & Output: Intake & Output 05/16/19 05/16/19 05/16/19 07:59 15:59 23:59 Intake Total Output Total 475 / 475 Balance -465 / -465 Weight 80.7 kg - Attending Attestation I saw and evaluated this patient and my medical decision-making was reviewed with the Resident Physician. I agree with the documented findings, disposition and treatment plan as described except to the extent set forth below. We independently had [id number] contact with the patient I spent 75 minutes of of Critical Care time with this patient. It involved decision making of high complexity to assess, manipulate, and support vital organ system failure and/or to prevent further life threatening deterioration of the patient's condition. The time involved in the performance of separately reportable procedures was not counted toward critical care time. Patient seen and examined at bedside Labs, radiology, chart personally reviewed. Management was reviewed during multidisciplinary critical care rounds. GAGE DESIGNER: Patient was found to be lethargic and obtunded in the floor and it looks like patient was admitted for acute coronary syndrome patient was given 50 mg of by mouth morphine and patient slowly developed worsening hypoventilation developed this acute on chronic hypoxic hypercarbic prior failure developed severe encephalopathy patient was not tried noninvasive ventilation at almost 2- 3 hours and noninvasive ventilation patient was getting more alert in spite of improving pH and PaCO2 patient gets this episodic obtundation patient did a CT head without contrast did not show any acute abnormalities Pulm: Patient after different settings of BiPAP/Avapsin the noninvasive ventilation and gas exchange got better her pH was slowly getting better PaCO2 dropped from 131 to 110 patient was more alert. PH increase from 7.1126 7.24 L Gold guidelines recommends for striae of noninvasive ventilation if it fails if patient gets more lethargic in spite of current treatment will do intubation and mechanical ventilation patient family was updated about this plan patient family agreed about intubating if needed. Patient might have some right lower lobe pneumonia patient is sexually lung disease will reduce antipseudomonal coverage with Zosyn. Cards: Patient is hemodynamically stable no evidence of shock FEN-GI: Keep nothing by mouth , PPI prophylaxis Renal: Labs and output were reviewed ID: To start on broad-spectrum antibiotics with possible right lower lobe pneumonia with structural lung disease Heme/Onc: Labs reviewed Endo: Glucose Monitored Integ/MSK: Skin Care per routine ICU Nursing Protocol to prevent ulcers. Lines: All lines examined without evidence of infection : Dispo: critically ill high chance of respiratory decline family updated CODE: DNR CCA with intubation
[2019-05-16] MEDS ORDERED: Ipratropium/Albuterol Neb 3 ML IH PRN (11:55)
[2019-05-16 13:01] LABS: ABG Base Excess 11 mEq/L (-2 to 3); ABG HCO3 46 mEq/L (21-27); ABG Oxygen Saturation 91 % (95-98); ABG PCO2 131 mmHg (35-45); ABG PH 7.15 pH Units (7.32-7.45); ABG PO2 86 mmHg (85-104); ABG TCO2 50 mEq/L (20-26); Blood Gas Modality AVAP; Blood Gas PEEP 6 cm H2O; Blood Gas VT 500 cc
[2019-05-16 15:33] LABS: ABG Base Excess 11 mEq/L (-2 to 3); ABG HCO3 44 mEq/L (21-27); ABG Oxygen Saturation 92 % (95-98); ABG PCO2 111 mmHg (35-45); ABG PH 7.21 pH Units (7.32-7.45); ABG PO2 82 mmHg (85-104); ABG TCO2 48 mEq/L (20-26); Blood Gas Modality AVAPS; Blood Gas PEEP 6 cm H2O; Blood Gas VT 500 cc
[2019-05-16] MEDS: MethylPREDNISolone 40 MG/ML VIAL IVP SCH (16:09)
[2019-05-16] MEDS: Naloxone 2 MG in 0.9 % Sodium Chloride 500 ML IVC SCH (16:24)
--- NOTE | 2019-05-16 17:15 | Event Note ---
<Alisa Ellsworth - Last Filed: 05/16/19 17:12> Date of Encounter: 05/16/19 Time of Encounter: 11:00 patient was very minimally responsive since arrival to the floor from ED and was not responding to sternal rub. After arrival to floor, she was evaluated multiple times by myself and nursing staff. Around 10:00 patient was evaluated at bedside and was minimally interactive upon conversation. she received narcan x2, and her response was minimal. ABG was ordered and showed CO2 130. She was placed on BiPAP immediately and patient was transferred to ICU stat, critical care team was consulted. head CT ordered etiology of unresponsiveness likely secondary to acute on chronic respiratory failure and CO2 narcosis patient has been admitted before to hospital with prior CO2>150 appreciate recs from critical care and social work team. ICU team will take over care of patient and stabilize. she will be continued on BiPAP. <Hilary Jefferson - Last Filed: 05/18/19 11:23> Date of Encounter: 05/16/19 I performed a history and physical examination of the patient and discussed his management with the resident. I reviewed the residents note and agree with the documented findings and plan of care.
[2019-05-16] MEDS: *HR* Heparin 5,000 UNIT/ML VIAL SQ SCH (17:27)
--- NOTE | 2019-05-16 18:08 | Procedure Note ---
Date of procedure: 05/16/19 Pre-op diagnosis: respiratory failure Post-op diagnosis: same Procedure: A time-out was completed verifying correct patient, procedure, site, positioning, and special equipment if applicable. The patient was placed in a flat position. Sedation was obtained using Etomidate 20mg. The patient was easily ventilated using an ambu bag. The [employer] was used and inserted into the oropharynx at which time there was a Grade 1 view of the vocal cords. A 7.5-sudanese endotracheal tube was inserted and visualized going through the vocal cords. The stylette was removed. Colorimetric change was visualized on the CO2 meter. Breath sounds were heard in both lung booker equally. The endotracheal tube was placed at 23 cm, measured at the teeth. Attending and resident was present for the entire procedure. A chest x-ray was ordered to assess for pneumothorax and verify endotrachealtube placement. Estimated Blood Loss: 0 The patient tolerated the procedure well and there were no complications. Anesthesia: IV sedation Surgeon: Loco Tabor Was there an ob gyn physician assistant present: Yes Coat Room Attendant: Artemio Mathias Estimated blood loss (cc): 0 IV fluids (cc): 0 Urine output (cc): 0 Specimen: none Pathology: none sent Condition: critical Disposition: ICU
[2019-05-16] MEDS: FentaNYL (PF) 1,000 MCG in 0.9 % Sodium Chloride 80 ML IVC SCH (18:44)
[2019-05-16] MEDS: Piperacillin/Tazobactam 3.375 GM in 0.9 % Sodium Chloride Mini Bag 100 ML IVPB SCH (18:54)
[2019-05-16 19:46] LABS: ABG Base Excess 16 mEq/L (-2 to 3); ABG HCO3 44 mEq/L (21-27); ABG Oxygen Saturation 87 % (95-98); ABG PCO2 67 mmHg (35-45); ABG PH 7.42 pH Units (7.32-7.45); ABG PO2 55 mmHg (85-104); ABG TCO2 46 mEq/L (20-26); Blood Gas Modality ASSIST CONTROL; Blood Gas PEEP 5 cm H2O; Blood Gas VT 450 cc
[2019-05-16] MEDS ORDERED: Artificial Tears SOLN 15 ML BOTTLE BOTH EYES PRN (19:59)
[2019-05-16] MEDS: Chlorhexidine Rinse 15 ML MOUTHWASH MM SCH (20:57)
[2019-05-16] MEDS: Artificial Tears SOLN 15 ML BOTTLE BOTH EYES SCH (20:57)
[2019-05-16 22:29] LABS: Adenovirus Not Detected (Not Detect); Bordetella Pertussis Not Detected (Not Detect); Chlamydophila pneumoniae Not Detected (Not Detect); Coronavirus 229E Not Detected (Not Detect); Coronavirus HKU1 Not Detected (Not Detect); Coronavirus NL63 Not Detected (Not Detect); Coronavirus OC43 Not Detected (Not Detect); Human Metapneumovirus Not Detected (Not Detect); Human Rhinovirus/Enterovirus Not Detected (Not Detect); Influenza A Subtype 2009 H1 Not Detected (Not Detect); Influenza A Untypeable Not Detected (Not Detect); Influenza B Not Detected (Not Detect); Mycoplasma pneumoniae Not Detected (Not Detect); Parainfluenza Virus 1 Not Detected (Not Detect); Parainfluenza Virus 2 Not Detected (Not Detect); Parainfluenza Virus 3 Not Detected (Not Detect); Parainfluenza Virus 4 Not Detected (Not Detect); Respiratory Syncytial Virus Not Detected (Not Detect)
[2019-05-17] MEDS: Artificial Tears SOLN 15 ML BOTTLE BOTH EYES SCH ×7 (00:03→19:46)
[2019-05-17] MEDS: MethylPREDNISolone 40 MG/ML VIAL IVP SCH ×3 (00:29→18:23)
[2019-05-17] MEDS: Naloxone 2 MG in 0.9 % Sodium Chloride 500 ML IVC SCH (01:41)
[2019-05-17] MEDS: FentaNYL (PF) 1,000 MCG in 0.9 % Sodium Chloride 80 ML IVC SCH (02:03)
[2019-05-17] MEDS: Piperacillin/Tazobactam 3.375 GM in 0.9 % Sodium Chloride Mini Bag 100 ML IVPB SCH (03:05)
[2019-05-17 04:12] LABS: ABG Base Excess 16 mEq/L (-2 to 3); ABG HCO3 40 mEq/L (21-27); ABG Oxygen Saturation 94 % (95-98); ABG PCO2 46 mmHg (35-45); ABG PH 7.55 pH Units (7.32-7.45); ABG PO2 64 mmHg (85-104); ABG TCO2 42 mEq/L (20-26); Blood Gas Modality ASSIST CONTROL; Blood Gas PEEP 5 cm H2O; Blood Gas VT 450 cc
[2019-05-17 04:33] LABS: Hematocrit 37.4 % (35.3-44.9); Hemoglobin 11.3 g/dL (11.5-15.4); Immature Granulocytes % 0.5 % (0-4); Lymphocytes # 0.4 K/mcL (0.6-4.6); Lymphocytes % 4.5 %; Mean Corpuscular HGB Conc 30.2 g/dL (31.6-35.5); Mean Corpuscular Volume 105.9 fL (83.0-100.0); Mean Platelet Volume 9.5 fL (9.4-12.4); Monocytes # 0.1 K/mcL (0.0-1.3); Monocytes % 1.1 %; Neutrophils # 7.8 K/mcL (1.6-8.9); Platelet Count 273 K/mcL (140-400); Red Blood Count 3.53 M/mcL (3.82-4.97); Red Cell Distribution Width 13.8 % (11.5-14.5); Segmented Neutrophils % 93.9 %; White Blood Count 8.3 K/mcL (4.3-11.1)
[2019-05-17 04:55] LABS: BUN/Creatinine Ratio 34 (6-26); Blood Urea Nitrogen 20 mg/dL (8-23); Carbon Dioxide 37 mEq/L (23-29); Chloride 94 mEq/L (98-107); Glucose 127 mg/dL (70-105); Magnesium 1.6 mg/dL (1.6-2.6); Osmolality,Calculated 298 (280-300); Phosphorous 2.7 mg/dL (2.7-4.5); Potassium 4.5 mEq/L (3.5-5.1); Sodium 142 mEq/L (136-145); eGFR For African Americans > 60 (> 60); eGFR For Non-African Americans > 60 (> 60)
[2019-05-17] MEDS: *HR* Heparin 5,000 UNIT/ML VIAL SQ SCH ×2 (05:47→18:24)
--- NOTE | 2019-05-17 06:41 | Pulmonology Progress Note ---
<Loco Tabor S - Last Filed: 05/17/19 11:29> Date of Encounter: 05/17/19 Time of Encounter: 08:06 Assessment and Plan (1) Acute on chronic respiratory failure with hypoxia and hypercapnia Current Visit: Yes Status: Acute Patient arrived to the ICU around noon today after being found nonresponsive and hypoxic - received two doses of narcan - ABG showed a pH of 7.11 and pCO2 of 130 Troponin negative D-dimer elevated at [address] chest negative for pulmonary embolism, emphysematous changes in the lungs with bibasilar atelectasis, cardiomegaly, CAD At this time the pt remains afebrile, no white count, no evidence of infxn causing AECOPD and respiratory failure, will not start abx at this time Repeat ABG showing pH 7.21, pCO2 111, pO2 82, HCO3 44 RIP negative XR chest from 05/16: Findings of congestive heart failure with unchanged bibasilar consolidation and bilateral pleural effusion comparing with study performed earlier today. - likely the pleural effusions are in relation to heart failure/transudative The patent did get intubated yesterday 05/16 at approx 6pm. She tolerated the procedure well and will be extuubated to BiPAP this AM. Plan: - extubate to BiPAP this morning - BiPAP prn and hs - IV solumedrol q8hr de-escalated to q12 - duonebs yokasta - lasix ivp 40mg daily, BID today - later this afternoon, depending on clinical course of how pt tolerates BiPAP will plan to perform thoracentesis and can hopefully go to a step down or telemetry paty (2) CHF (congestive heart failure) Current Visit: No Status: Acute Possible causing part of her respiratory distress as the pt does have pleural effusions that may have contributed to respiratory distress. Previous ECHO from Dec 2018 showing LVEF 55-60%. LV wall thickness not well obtained. Grossly, there is basal septal hypertrophy. Continue diuresis as above. Qualifiers: Heart failure type: diastolic Heart failure chronicity: unspecified Qualified Code(s): I50.30 - Unspecified diastolic (congestive) heart failure (3) DVT prophylaxis Current Visit: Yes Status: Acute sq heparin (4) Pulmonary nodule Current Visit: No Status: Acute Noted on CT scan of chest. Needs outpatient follow up. (5) Weakness generalized Current Visit: Yes Status: Acute PTOT consulted. SW consulted. (6) COPD exacerbation Current Visit: Yes Status: Acute See plan as above. (7) Left-sided chest pain Current Visit: Yes Status: Acute Per the ED reports, [facility] left sided chest pain. EKG reviewed, no acute changes D dimer elevated at 2192 Troponin negative x3 CTA showed no evidence of PE. There was emphysematous changes in lungs with bibasilar atalectasis. Last echo from 01/17/19 showed EF 55-60% with LV wall thickness not well obtained, gross basal septal hypertrophy, mild LV diastolic dysfunction, mild tricuspid regurgitation, no pulmonary hypertation. Subjective Principal diagnosis: acute on chronic respiratory failure Interval history: Pt seen at bedside. She is following command and doing well on CPAP trial. Plan to extubate to BiPAP this morning. Objective PUL Vital signs: Last Vital Signs Temp 99.4 F 05/17/19 04:20 Pulse 85 05/17/19 06:00 Resp 14 05/17/19 06:12 BP 122/73 05/17/19 06:12 Pulse Ox 96 05/17/19 06:12 General appearance: no acute distress, lethargic Eyes: nonicteric ENT: oropharynx dry Effort: mildly labored Auscultation: bilateral: diminished breath sounds Cardiovascular: regular rate and rhythm Gastrointestinal: soft, non-tender, non-distended Integumentary: normal Extremities: edema Musculoskeletal: no deformities unable to assess due to mental status other (unable to assess due to mental status) Ventilator Settings Ventilator Settings: Ventilator Settings, Last 8 Hours Ventilator Tidal Volume 450 Setting Ventilator Tidal Volume 450 Setting Ventilator Tidal Volume 450 Setting Ventilator Tidal Volume 450 Setting Ventilator Tidal Volume 450 Setting Ventilator Tidal Volume 450 Setting Ventilator Tidal Volume 450 Setting Ventilator Tidal Volume 450 Setting Ventilator Tidal Volume 450 Setting Ventilator Tidal Volume 450 Setting Ventilator Tidal Volume 450 Setting Ventilator Tidal Volume 450 Setting Ventilator Tidal Volume 450 Setting Ventilator Respiratory Rate 14 Setting Ventilator Respiratory Rate 14 Setting Ventilator Respiratory Rate 14 Setting Ventilator Respiratory Rate 12 Setting Ventilator Respiratory Rate 14 Setting Ventilator Respiratory Rate 14 Setting Ventilator Respiratory Rate 14 Setting Ventilator Respiratory Rate 14 Setting Ventilator Respiratory Rate 14 Setting Ventilator Respiratory Rate 14 Setting Ventilator Respiratory Rate 14 Setting Ventilator Respiratory Rate 14 Setting Ventilator Respiratory Rate 14 Setting Actual Respiratory Rate 14 Actual Respiratory Rate 21 Actual Respiratory Rate 14 Actual Respiratory Rate 14 Actual Respiratory Rate 14 Actual Respiratory Rate 18 Actual Respiratory Rate 14 Actual Respiratory Rate 18 Actual Respiratory Rate 14 Actual Respiratory Rate 19 Actual Respiratory Rate 14 Actual Respiratory Rate 14 Actual Respiratory Rate 14 Positive End Expiratory 5 Pressure Positive End Expiratory 5 Pressure Positive End Expiratory 5 Pressure Positive End Expiratory 5 Pressure Positive End Expiratory 5 Pressure Positive End Expiratory 5 Pressure Positive End Expiratory 5 Pressure Positive End Expiratory 5 Pressure Positive End Expiratory 5 Pressure Positive End Expiratory 5 Pressure Positive End Expiratory 5 Pressure Positive End Expiratory 5 Pressure Positive End Expiratory 5 Pressure Positive End Expiratory 5 Pressure Peak Inspiratory Airway 15 Pressure Peak Inspiratory Airway 22 Pressure Peak Inspiratory Airway 21 Pressure Peak Inspiratory Airway 21 Pressure Peak Inspiratory Airway 21 Pressure Peak Inspiratory Airway 22 Pressure Peak Inspiratory Airway 21 Pressure Peak Inspiratory Airway 21 Pressure Peak Inspiratory Airway 21 Pressure Peak Inspiratory Airway 23 Pressure Peak Inspiratory Airway 23 Pressure Peak Inspiratory Airway 23 Pressure Peak Inspiratory Airway 24 Pressure Results - Laboratory Findings CBC and BMP: 05/17/19 04:00 05/17/19 04:00 ABG ABG pH 7.55 pH Units (7.32-7.45) H 05/17/19 04:06 ABG pCO2 46 mmHg (35-45) H 05/17/19 04:06 ABG pO2 64 mmHg (85-104) L 05/17/19 04:06 ABG O2 Saturation 94 % (95-98) L 05/17/19 04:06 PT/INR, D-dimer 2192 ng/mLFEU (0-500) H 05/16/19 01:57 Abnormal lab findings: Abnormal lab results RBC 3.53 M/mcL (3.82-4.97) L 05/17/19 04:00 Hgb 11.3 g/dL (11.5-15.4) L 05/17/19 04:00 MCV 105.9 fL (83.0-100.0) H 05/17/19 04:00 MCHC 30.2 g/dL (31.6-35.5) L 05/17/19 04:00 0.4 K/mcL (0.6-4.6) L 05/17/19 04:00 2192 ng/mLFEU (0-500) H 05/16/19 01:57 ABG pH 7.55 pH Units (7.32-7.45) H 05/17/19 04:06 ABG pCO2 46 mmHg (35-45) H 05/17/19 04:06 ABG pO2 64 mmHg (85-104) L 05/17/19 04:06 ABG HCO3 40 mEq/L (21-27) H 05/17/19 04:06 ABG Total CO2 42 mEq/L (20-26) H 05/17/19 04:06 ABG O2 Saturation 94 % (95-98) L 05/17/19 04:06 ABG Base Excess 16 mEq/L (-2 to 3) H 05/17/19 04:06 VBG pH 7.46 pH Units (7.32-7.42) H 05/16/19 03:10 VBG pCO2 61 mmHg (41-51) H 05/16/19 03:10 VBG pO2 59 mmHg (25-50) H 05/16/19 03:10 VBG HCO3 43 mEq/L (21-27) H 05/16/19 03:10 Chloride 94 mEq/L (98-107) L 05/17/19 04:00 Carbon Dioxide 37 mEq/L (23-29) H 05/17/19 04:00 0.59 mg/dL (0.60-1.20) L 05/17/19 04:00 34 (6-26) H 05/17/19 04:00 Glucose 127 mg/dL (70-105) H 05/17/19 04:00 POC Glucose 109 mg/dL (70-99) H 05/16/19 23:23 - Clinical Findings Intake & Output: Intake & Output 05/16/19 05/16/19 05/17/19 15:59 23:59 07:59 Intake Total 146.4 / 146.4 143.6 / 143.6 Output Total 475 / 475 750 / 750 Balance -328.6 / -328.6 -606.4 / -606.4 Weight 79.5 kg Consult Discharge Plan - Plan Referrals: Alisa Rojas MD [Primary Care Provider] - 05/22/19 10:30 am <Jorge Vasques - Last Filed: 05/17/19 14:41> Date of Encounter: 05/17/19 Objective PUL Vital signs: Last Vital Signs Temp 98.6 F 05/17/19 11:26 Pulse 90 05/17/19 13:00 Resp 20 05/17/19 13:00 BP 142/68 05/17/19 13:00 Pulse Ox 95 05/17/19 13:00 Ventilator Settings Ventilator Settings: Ventilator Settings, Last 8 Hours Actual Respiratory Rate 13 Actual Respiratory Rate 14 Actual Respiratory Rate 14 Positive End Expiratory 5 Pressure Positive End Expiratory 5 Pressure Positive End Expiratory 5 Pressure Positive End Expiratory 5 Pressure Positive End Expiratory 5 Pressure Positive End Expiratory 5 Pressure Positive End Expiratory 5 Pressure Positive End Expiratory 5 Pressure Peak Inspiratory Airway 15 Pressure Peak Inspiratory Airway 15 Pressure Peak Inspiratory Airway 15 Pressure Peak Inspiratory Airway 16 Pressure Peak Inspiratory Airway 16 Pressure Peak Inspiratory Airway 15 Pressure Peak Inspiratory Airway 16 Pressure Peak Inspiratory Airway 15 Pressure Results - Laboratory Findings CBC and BMP: 05/17/19 04:00 05/17/19 04:00 ABG ABG pH 7.55 pH Units (7.32-7.45) H 05/17/19 04:06 ABG pCO2 46 mmHg (35-45) H 05/17/19 04:06 ABG pO2 64 mmHg (85-104) L 05/17/19 04:06 ABG O2 Saturation 94 % (95-98) L 05/17/19 04:06 PT/INR, D-dimer 2192 ng/mLFEU (0-500) H 05/16/19 01:57 Abnormal lab findings: Abnormal lab results RBC 3.53 M/mcL (3.82-4.97) L 05/17/19 04:00 Hgb 11.3 g/dL (11.5-15.4) L 05/17/19 04:00 MCV 105.9 fL (83.0-100.0) H 05/17/19 04:00 MCHC 30.2 g/dL (31.6-35.5) L 05/17/19 04:00 0.4 K/mcL (0.6-4.6) L 05/17/19 04:00 2192 ng/mLFEU (0-500) H 05/16/19 01:57 ABG pH 7.55 pH Units (7.32-7.45) H 05/17/19 04:06 ABG pCO2 46 mmHg (35-45) H 05/17/19 04:06 ABG pO2 64 mmHg (85-104) L 05/17/19 04:06 ABG HCO3 40 mEq/L (21-27) H 05/17/19 04:06 ABG Total CO2 42 mEq/L (20-26) H 05/17/19 04:06 ABG O2 Saturation 94 % (95-98) L 05/17/19 04:06 ABG Base Excess 16 mEq/L (-2 to 3) H 05/17/19 04:06 VBG pH 7.46 pH Units (7.32-7.42) H 05/16/19 03:10 VBG pCO2 61 mmHg (41-51) H 05/16/19 03:10 VBG pO2 59 mmHg (25-50) H 05/16/19 03:10 VBG HCO3 43 mEq/L (21-27) H 05/16/19 03:10 Chloride 94 mEq/L (98-107) L 05/17/19 04:00 Carbon Dioxide 37 mEq/L (23-29) H 05/17/19 04:00 0.59 mg/dL (0.60-1.20) L 05/17/19 04:00 34 (6-26) H 05/17/19 04:00 Glucose 127 mg/dL (70-105) H 05/17/19 04:00 POC Glucose 109 mg/dL (70-99) H 05/16/19 23:23 - Clinical Findings Intake & Output: Intake & Output 05/16/19 05/17/19 05/17/19 23:59 07:59 15:59 Intake Total 146.4 / 146.4 243.6 / 243.6 Output Total 475 / 475 925 / 1775 850 / 1775 Balance -328.6 / -328.6 -681.4 / -1531.4 -850 / -1531.4 Weight 79.5 kg - Attending Attestation I examined this patient and my medical decision-making was reviewed with the Resident Physician. I agree with the documented findings, disposition and treatment plan as described except to the extent set forth below. We independently had [id number] contact with the patient Patient seen and examined at bedside Labs, radiology, chart personally reviewed. Management was reviewed during multidisciplinary critical care rounds. 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: Metabolic encephalopathy has resolved the patient has no focal deficits today Pulm: Acute on chronic hypoxic hypercapnic respiratory failure thought secondary to hydrostatic pulmonary edema from heart failure successfully liberated from the ventilator; will assess for candidacy of thoracentesis; BiPAP at night Cards: Heart failure with preserved ejection fraction acutely decompensated aggressive diuretic regimen GI: No active issues Nutrition: Nothing by mouth for now can likely advance diet if successfully remains liberated from the vent and not requiring BiPAP Renal: UOP Monitored, Cont to Trend sCr and monitor Electrolytes. ID: No clear evidence of infection stop antibiotics Heme/Onc: DVT prophylaxis given Endo: Glucose Monitored Integ/MSK: Skin Care per routine ICU Nursing Protocol to prevent ulcers. Lines: All lines examined without evidence of infection : Dispo: Monitor in ICU postextubation can likely be discharged from the ICU later today or tomorrow CODE: DNAR
[2019-05-17] MEDS: Chlorhexidine Rinse 15 ML MOUTHWASH MM SCH ×2 (07:49→19:32)
[2019-05-17] MEDS: Furosemide 40 MG/4 ML VIAL IVP SCH (09:04)
[2019-05-17] MEDS ORDERED: Isovue-370 500 ML BOTTLE IVP ONE (11:32)
--- NOTE | 2019-05-17 12:45 | Palliative - Consult Note ---
Date of Encounter: 05/17/19 Time of Encounter: 11:00 - Assessment and Plan (1) Goals of care, counseling/discussion Current Visit: Yes Status: Acute Assessment and plan: Patient intubated and on mechanical ventilation at the time of consult. Patient expected to be extubated. EMR reviewed. Called patients son Fan - #[phone]. Updated him on patients POC. He provided H&P data for consult. Patient recently discharged from [facility] to [facility] and was actively participating in her physical therapy there. Patients goal was to return home to her independent living apartment at [facility]. Patient wear NC O2 around the clock at 2L. Patient is DNRCC - A. Once patient is extubated will discuss goals with patient. Fan plans to visit the hospital later today and will let nursing know to call me for bedside meeting. (2) Palliative care encounter Current Visit: Yes Status: Acute (3) Acute on chronic respiratory failure with hypoxia and hypercapnia Current Visit: Yes Status: Acute Assessment and plan: Pulmonology following patient. Plan per ICU team. (4) COPD exacerbation Current Visit: Yes Status: Acute Palliative-CN HPI - Data of Consult Patient: new to practice Consult date: 05/17/19 Requesting Physician: Loco Tabor Primary Care Provider: Alisa Rojas MD - Consult Narrative Palliative Care/Comfort Measures: Palliative care Reason for consult: Goals of Care History of present illness: Ms. Abbott is a 78 year old female with PMHx of diastolic CHF, HTN, HLD, GERD, COPD, chronic hypoxic respiratory failure on 2L O2, AAA. Presented via from [facility]. She was recently discharged from [facility] to [facility] for rehabilitation. Patient c/o chest pain upon arrival to the ED. She acutely decompensated and became non-responsive and found to have a CO2 of 130. Patient was intubated and started on ventilator. The patient has has multiple admits and suffers from COPD. This palliative care consult is for goals of care discussion. CC: Hina Crow MD - Time Spent with Patient Time: Total time spent is greater than 50% in coordination of care (as documented) at patient's floor/unit and/or counseling patient: Past Med Surg Social Fam HX - Past Medical History Attestation: Yes The following information was validated with the patient. Source: old records reviewed, obtained from family, nursing notes reviewed Medical history: CHF, COPD, GERD, hyperlipidemia, hypertension, other Additional medical history: IBS, AAA, restless leg syndrome Psychiatric history: anxiety, depression - Past Surgical History Surgical History: angioplasty/stent, orthopedic, other, pacemaker/AICD Additional surgical history: LTKA, RTSA, left femur corinna. - Social History Smoking Status: Former smoker Smokeless Tobacco Status: No Alcohol use: none Drug use: none Occupational status: retired Current living situation: [facility] Activity Level: Uses cane/walker Recent Out of Country Travel Within the Last 8 Weeks: No Exposure or Possible Exposure to Illness During Travel: No - Family History Mother Adopted: Yes Father Adopted: Yes Medications and Allergies Alendronate Sodium 70 mg PO CARDOZA@0600 01/18/19 [History] Atorvastatin Calcium [Lipitor] 20 mg PO 199901/18/19 [History] Clopidogrel [Plavix] 75 mg PO 0600 01/18/19 [History] Dicyclomine [Bentyl] 10 mg PO PRN PRN 01/18/19 [History] Enalapril Maleate [Vasotec] 5 mg PO 0600,1600 01/18/19 [History] Famciclovir 500 mg PO 0600,159901/18/19 [History] Fluticasone/Vilanterol [Breo Ellipta 200-25 Mcg INH] 1 puff IH 179901/18/19 [History] Melatonin 5 mg PO 199901/18/19 [History] Metoprolol [Lopressor] 25 mg PO 0600,1600 01/18/19 [History] Omeprazole [PriLOSEC] 20 mg PO 0600 01/18/19 [History] Primidone [Mysoline] 50 mg PO 0600,1600 01/18/19 [History] Ropinirole HCl [Requip] 0.5 mg PO 199901/18/19 [History] Acetaminophen [Tylenol] 650 mg PO BID PRN 04/11/19 [History] Albuterol Sulfate [Proair Hfa] 2 puff PO Q4H PRN 04/27/19 [History] Nystatin 1 appl TP PRN PRN 04/27/19 [History] Rizatriptan Benzoate [Maxalt] 10 mg PO PRN PRN 04/27/19 [History] Ipratropium/Albuterol Neb [Duoneb] 3 ml IH Q6HR PRN #30 inhsol 05/01/19 [Rx] Allergy/AdvReac Type Severity Reaction Status Date / Time aspirin Allergy Rash Verified 04/27/19 19:24 bee venom protein (honey bee) Allergy Swelling Verified 04/27/19 19:24 of Lip/Tongue/Throat codeine Allergy Rash Verified 04/27/19 19:24 ROS unobtainable: due to endotracheal tube - Constitutional Constitutional ROS PAL: fatigue - EENT Eyes: requires corrective lenses - Cardiovascular Cardiovascular ROS: chest pain - Respiratory Respiratory: dyspnea - Musculoskeletal Musculoskeletal ROS IM: muscle weakness - Neurological Neurological ROS: weakness Palliative Care-Exam - Constitutional Vitals: Temp Pulse Resp BP Pulse Ox 98.6 F 84 22 137/98 100 05/17/19 11:26 05/17/19 12:00 05/17/19 12:00 05/17/19 12:00 05/17/19 12:00 General appearance: Present: cooperative, no acute distress Exam: Intubated and mechanically ventilated. Tolerating CPAP. - Head Head Exam: Present: atraumatic, normal inspection, normocephalic - Eye Eye exam: Present: PERRL - ENT ENT exam: Present: mucous membranes moist - Respiratory Respiratory exam: Present: decreased breath sounds - Expanded Respiratory Exam Location: decreased breath sounds: Left, Right, Lower - Expanded Cardiovascular Exam Peripheral pulses: 1+: Femoral (L) PM, Femoral (R) PM, Posterior Tibialis (L), Posterior Tibialis (R), 2+: Carotid (L) PM, Carotid (R) PM, Radial (L), Radial (R), Dorsalis Pedis (L) PM, Dorsalis Pedis (R) PM - GI/Abdominal Exam GI/Abdominal exam: Present: normal bowel sounds, soft - Catheter Type: Urethral (Cruz) (Clear yellow urine) - Expanded Upper Extremities Exam General: Present: normal inspection - Neurological Exam Neurological exam: Present: alert - Expanded Neurological Exam Coma Scale Eye Opening: Spontaneous - Psychiatric Psychiatric exam: Present: flat affect - Skin Skin exam: Present: pallor, warm Internal Medicine - CN: Reslt - Labs CBC & Chem 7: 05/17/19 04:00 05/17/19 04:00 Labs: Short CBC 05/17/19 Range/Units 04:00 WBC 8.3 (4.3-11.1) K/mcL Hgb 11.3 L (11.5-15.4) g/dL Hct 37.4 (35.3-44.9) % Plt Count 273 (140-400) K/mcL Neutrophils # 7.8 (1.6-8.9) K/mcL BMP 05/17/19 04:00 Sodium 142 Potassium 4.5 Chloride 94 L Carbon Dioxide 37 H BUN 20 Creatinine 0.59 L Glucose 127 H Calcium 10.0 Cardiac Enzymes 05/16/19 Range/Units 16:05 Troponin I < 0.03 (< 0.04) ng/mL - ABG Interpretation ABG results: ABG ABG pH 7.55 pH Units (7.32-7.45) H 05/17/19 04:06 ABG pCO2 46 mmHg (35-45) H 05/17/19 04:06 ABG pO2 64 mmHg (85-104) L 05/17/19 04:06 ABG O2 Saturation 94 % (95-98) L 05/17/19 04:06 PT/INR, D-dimer 2192 ng/mLFEU (0-500) H 05/16/19 01:57 - Impressions Impressions Head CT 05/16/19 10:58 IMPRESSION: No acute intracranial abnormality. Mild senescent changes. D/ / Rebel Montemayor / Rebel Montemayor Interpreting Provider: Rebel Montemayor Chest X-Ray 05/16/19 18:05 IMPRESSION: 1. Chest radiograph: Findings of congestive heart failure with unchanged bibasilar consolidation and bilateral pleural effusion comparing with study performed earlier today. 2. Calcific atherosclerosis aorta. 3. Cardiomegaly. 4. KUB: Unremarkable bowel gas pattern. 5. NG tube extends below the left hemidiaphragm, into the upper abdomen, tip overlying the expected level of the stomach, left upper quadrant. D/ / Rebel Montemayor / Rebel Montemayor Interpreting Provider: Rebel Montemayor X-Ray 05/16/19 18:15 IMPRESSION: 1. Chest radiograph: Findings of congestive heart failure with unchanged bibasilar consolidation and bilateral pleural effusion comparing with study performed earlier today. 2. Calcific atherosclerosis aorta. 3. Cardiomegaly. 4. KUB: Unremarkable bowel gas pattern. 5. NG tube extends below the left hemidiaphragm, into the upper abdomen, tip overlying the expected level of the stomach, left upper quadrant. D/ / Rebel Montemayor / Rebel Montemayor Interpreting Provider: Rebel Montemayor Consult Discharge Plan - Plan Referrals: Alisa Rojas MD [Primary Care Provider] - 05/22/19 10:30 am Palliative Quality Palliative Quality: Screen for Code Status: Yes, Screen for Goals of Care: Yes, Screen for Pain: Yes, Screen for Nausea/Vomitting: Yes Code Status: 05/16/19 10:26 Resuscitation Status: Active [RES] Routine Comment: Resuscitation Status: Full Code 05/16/19 18:36 CODE [Resuscitation Status: Active] [RES] Routine Comment: Resuscitation Status: DNR-Comfort Care-Arrest
[2019-05-17] MEDS ORDERED: Furosemide 40 MG/4 ML VIAL IVP ONE (14:00)
--- NOTE | 2019-05-17 15:50 | Event Note ---
Date of Encounter: 05/17/19 Time of Encounter: 15:40 Conducted phone conversation with patients daughter Mindy Walters (#[phone]) She states that she is POA. I requested that she bring the formal DPOA forms for placement into the patients EMR. Discussed patients current POC. Patient and daughter desire rehab/PT at [facility]. I explained that patient has chronic lung disease requiring home O2. I introduced the topic of hospice as an option for care. Mindy states that she will visit patient this evening and discuss patients desires. I further discussed that patient verbalized that she may not desire re-intubation and placed back on the mechanical ventilator but she desires to have a discussion with her children. Mindy states that a niece is traveling from [place] and will arrive soon. Plan for family to discuss goals with patient. I discussed plan with Dr. Loco Tabor and the PC team will continue to follow.
[2019-05-18 04:52] LABS: Hematocrit 35.6 % (35.3-44.9); Hemoglobin 11.1 g/dL (11.5-15.4); Mean Corpuscular HGB Conc 31.2 g/dL (31.6-35.5); Mean Corpuscular Hemoglobin 32.8 pg (28.0-33.3); Mean Corpuscular Volume 105.3 fL (83.0-100.0); Mean Platelet Volume 9.3 fL (9.4-12.4); Platelet Count 269 K/mcL (140-400); Red Blood Count 3.38 M/mcL (3.82-4.97); Red Cell Distribution Width 13.8 % (11.5-14.5); White Blood Count 8.6 K/mcL (4.3-11.1)
[2019-05-18 05:18] LABS: BUN/Creatinine Ratio 44 (6-26); Blood Urea Nitrogen 24 mg/dL (8-23); Calcium 9.3 mg/dL (8.6-10.3); Carbon Dioxide 40 mEq/L (23-29); Chloride 90 mEq/L (98-107); Glucose 133 mg/dL (70-105); Osmolality,Calculated 290 (280-300); Potassium 4.2 mEq/L (3.5-5.1); Sodium 137 mEq/L (136-145); eGFR For African Americans > 60 (> 60); eGFR For Non-African Americans > 60 (> 60)
[2019-05-18] MEDS: *HR* Heparin 5,000 UNIT/ML VIAL SQ SCH ×2 (05:26→17:48)
[2019-05-18] MEDS: MethylPREDNISolone 40 MG/ML VIAL IVP SCH ×2 (05:26→17:48)
[2019-05-18 05:28] LABS: Thyroid Stimulating Hormone 0.234 mcIU/mL (0.340-5.600)
[2019-05-18] MEDS: Artificial Tears SOLN 15 ML BOTTLE BOTH EYES SCH (08:01)
[2019-05-18] MEDS: Chlorhexidine Rinse 15 ML MOUTHWASH MM SCH (08:01)
[2019-05-18] MEDS: Furosemide 40 MG/4 ML VIAL IVP SCH ×2 (08:13→17:45)
--- NOTE | 2019-05-18 09:30 | Pulmonology Progress Note ---
Date of Encounter: 05/18/19 Time of Encounter: 09:30 Assessment and Plan (1) Acute on chronic respiratory failure with hypoxia and hypercapnia Current Visit: Yes Status: Acute Patient was acute on chronic hypoxic hypercapnic respiratory failure which is likely secondary to CHF exacerbation complicated by narcotic administration in the emergency department. Patient successfully liberated from the ventilator now for approximately 24 hours it is stable for transfer out of the ICU to the medical telemetry unit for ongoing care. She should use BiPAP at night while inpatient for her chronic respiratory failure (2) CHF (congestive heart failure) Current Visit: No Status: Acute We will increase diuretic regimen to Lasix twice daily goal net -1-1.5 L over the next 24 hours Restart home cardiac medications including beta jesse and aspirin Plavix and statin Qualifiers: Heart failure type: diastolic Heart failure chronicity: unspecified Qualified Code(s): I50.30 - Unspecified diastolic (congestive) heart failure (3) Encephalopathy acute Current Visit: No Status: Resolved This has resolved now and was related to hypercarbia and toxic encephalopathy from narcotic administration (4) Pneumonia Current Visit: No Status: Resolved No clear evidence of infection or sepsis antibiotics have been stopped Qualifiers: Pneumonia type: due to unspecified organism Laterality: unspecified laterality Lung location: unspecified part of lung Qualified Code(s): J18.9 - Pneumonia, unspecified organism (5) Goals of care, counseling/discussion Current Visit: Yes Status: Acute Patient unclear if she wants to be reintubated she is currently do not attempt resuscitation in the event of cardiac arrest palliative care following ongoing discussions with the family and her power of tax associate attorney her adult daughter Patient stable for transfer to telemetry will discuss the case with the primary hospitalists for transfer for ongoing care should be getting close to be able to be discharged back to [facility] Subjective Principal diagnosis: acute on chronic respiratory failure Interval history: Patient was successfully liberated from the ventilator yesterday and is doing quite well she is up tolerating diet denies any complaints breathing is getting back to baseline she feels good generally Objective PUL Vital signs: Last Vital Signs Temp 98.1 F 05/18/19 09:17 Pulse 95 05/18/19 09:00 Resp 20 05/18/19 09:00 BP 130/69 05/18/19 09:00 Pulse Ox 92 05/18/19 09:00 General appearance: no acute distress Eyes: nonicteric Auscultation: bilateral: diminished breath sounds (In the lung bases), rales (Upper lung booker) Cardiovascular: regular rate and rhythm Gastrointestinal: normoactive bowel sounds, soft, non-tender Integumentary: normal Extremities: edema Musculoskeletal: no deformities normal mental status, non-focal exam mood appropriate Results - Laboratory Findings CBC and BMP: 05/18/19 04:40 05/18/19 04:40 ABG ABG pH 7.55 pH Units (7.32-7.45) H 05/17/19 04:06 ABG pCO2 46 mmHg (35-45) H 05/17/19 04:06 ABG pO2 64 mmHg (85-104) L 05/17/19 04:06 ABG O2 Saturation 94 % (95-98) L 05/17/19 04:06 PT/INR, D-dimer 2192 ng/mLFEU (0-500) H 05/16/19 01:57 Abnormal lab findings: Abnormal lab results RBC 3.38 M/mcL (3.82-4.97) L 05/18/19 04:40 Hgb 11.1 g/dL (11.5-15.4) L 05/18/19 04:40 MCV 105.3 fL (83.0-100.0) H 05/18/19 04:40 MCHC 31.2 g/dL (31.6-35.5) L 05/18/19 04:40 MPV 9.3 fL (9.4-12.4) L 05/18/19 04:40 0.4 K/mcL (0.6-4.6) L 05/17/19 04:00 2192 ng/mLFEU (0-500) H 05/16/19 01:57 ABG pH 7.55 pH Units (7.32-7.45) H 05/17/19 04:06 ABG pCO2 46 mmHg (35-45) H 05/17/19 04:06 ABG pO2 64 mmHg (85-104) L 05/17/19 04:06 ABG HCO3 40 mEq/L (21-27) H 05/17/19 04:06 ABG Total CO2 42 mEq/L (20-26) H 05/17/19 04:06 ABG O2 Saturation 94 % (95-98) L 05/17/19 04:06 ABG Base Excess 16 mEq/L (-2 to 3) H 05/17/19 04:06 VBG pH 7.46 pH Units (7.32-7.42) H 05/16/19 03:10 VBG pCO2 61 mmHg (41-51) H 05/16/19 03:10 VBG pO2 59 mmHg (25-50) H 05/16/19 03:10 VBG HCO3 43 mEq/L (21-27) H 05/16/19 03:10 Chloride 90 mEq/L (98-107) L 05/18/19 04:40 Carbon Dioxide 40 mEq/L (23-29) H* 05/18/19 04:40 BUN 24 mg/dL (8-23) H 05/18/19 04:40 0.55 mg/dL (0.60-1.20) L 05/18/19 04:40 44 (6-26) H 05/18/19 04:40 Glucose 133 mg/dL (70-105) H 05/18/19 04:40 POC Glucose 116 mg/dL (70-99) H 05/17/19 11:31 TSH 0.234 mcIU/mL (0.340-5.600) L 05/18/19 04:40 - Clinical Findings Intake & Output: Intake & Output 05/17/19 05/18/19 05/18/19 23:59 07:59 15:59 Output Total 750 / 2650 1150 / 1325 175 / 1325 Balance -750 / -2406.4 -1150 / -1325 -175 / -1325 Weight 75.2 kg Consult Discharge Plan - Plan Referrals: Alisa Rojas MD [Primary Care Provider] - 05/22/19 10:30 am
[2019-05-18] MEDS ORDERED: Nitroglycerin 0.4 MG TAB.SUBL SL PRN (10:47)
[2019-05-18] MEDS ORDERED: Ipratropium/Albuterol Neb 3 ML IH PRN (10:47)
[2019-05-18] MEDS ORDERED: Naloxone 0.4 MG/ML INJ IVP PRN (10:47)
--- NOTE | 2019-05-18 13:22 | Event Note ---
Date of Encounter: 05/18/19 Time of Encounter: 10:00 Patient stable and transferring out of ICU today. She is feeling better and oxygenating well. Taking po. I addressed if she discussed reintubation with her daughter, however, she states daughter was not able to visit yesterday, but will be visiting this evening and they will discuss. She desires to speak with son as well. Will f/u with her tomorrow to see if she has made any decision.
[2019-05-18] MEDS ORDERED: Furosemide 40 MG/4 ML VIAL IVP SCH (17:00)
[2019-05-19] MEDS: Acetaminophen 325 MG TABLET PO PRN ×3 (00:17→20:54)
[2019-05-19] MEDS: *HR* Heparin 5,000 UNIT/ML VIAL SQ SCH ×2 (06:19→17:03)
[2019-05-19] MEDS: MethylPREDNISolone 40 MG/ML VIAL IVP SCH ×2 (06:20→17:03)
--- NOTE | 2019-05-19 07:39 | Internal Med Progress Note ---
Hospitalist Progress Note - Encounter Date of Encounter: 05/19/19 Time of Encounter: 12:36 - Subjective Interval History: No acute events. Patient denies SOB, CP, dizziness, fevers, chills. Focused on food and appetite is good. - Exam Vitals: Temp Pulse Resp BP Pulse Ox 97.9 F 71 16 131/83 99 05/19/19 07:12 05/19/19 07:12 05/19/19 07:12 05/19/19 07:12 05/19/19 07:12 Exam: General appearance: NAD, non-labored breathing, converses without issue Eyes: nonicteric Auscultation: bilateral: Decreased breath sounds at bases Cardiovascular: RRR Gastrointestinal: normoactive bowel sounds, soft, non-tender Extremities: trace bipedal edema Musculoskeletal: no deformities Neuro: no focal deficits. - Assessment and Plan (1) Acute on chronic respiratory failure with hypoxia and hypercapnia Current Visit: Yes Status: Acute Assessment and Plan: Secondary to CHF exacerbation, COPD exacerbation. Continue Solu Medrol, Lasix Duo Nebs. (2) Goals of care, counseling/discussion Current Visit: Yes Status: Acute (3) CHF (congestive heart failure) Current Visit: No Status: Acute Assessment and Plan: as above (4) Metabolic encephalopathy Current Visit: No Status: Acute Assessment and Plan: resolved (5) DVT prophylaxis Current Visit: Yes Status: Acute Assessment and Plan: Heparin - Time Spent with Patient Total time spent is greater than 50% in coordination of care (as documented) at patient's floor/unit and/or counseling patient: Internal Medicine: Result - Labs CBC & Chem 7: 05/18/19 04:40 05/18/19 04:40 - ABG Interpretation ABG results: ABG ABG pH 7.55 pH Units (7.32-7.45) H 05/17/19 04:06 ABG pCO2 46 mmHg (35-45) H 05/17/19 04:06 ABG pO2 64 mmHg (85-104) L 05/17/19 04:06 ABG O2 Saturation 94 % (95-98) L 05/17/19 04:06 PT/INR, D-dimer 2192 ng/mLFEU (0-500) H 05/16/19 01:57 Consult Discharge Plan - Plan Referrals: Alisa Rojas MD [Primary Care Provider] - 05/22/19 10:30 am (3) CHF (congestive heart failure) Qualifiers: Heart failure type: diastolic Heart failure chronicity: unspecified Qualified Code(s): I50.30 - Unspecified diastolic (congestive) heart failure
[2019-05-19] MEDS: Furosemide 40 MG/4 ML VIAL IVP SCH ×2 (08:48→17:03)
--- NOTE | 2019-05-19 11:18 | Palliative Progress Note ---
Date of Encounter: 05/19/19 Time of Encounter: 11:00 - Assessment and plan (1) Dyspnea Current Visit: Yes Status: Acute Assessment and plan: Improved - continues with IV steroids/bronchodilators/diuresis/oxygen support and bipap at hs and PRN. MOnitor. (2) Goals of care, counseling/discussion Current Visit: Yes Status: Acute Assessment and plan: Discussed goals of care with patient at length, and also with daughter Mindy via telephone per pt request. Patient has decided she does not want reintubated if she has respiratory deterioration. She had conversation with her daughter Mindy, and Mindy is in agreement. She knows that patient lungs will not improve, and will eventually cause her demise. They are both desiring code status change to DNR/DNI - [facility] completed and copies provided to pt. Mindy brought in patient adv directives (POA and living will) and copies placed in chart. PT /OT consult pending, they are hoping for rehab placement at [facility] with the goal of getting her back to assisted living. (3) Acute on chronic respiratory failure with hypoxia Current Visit: No Status: Resolved (4) COPD exacerbation Current Visit: Yes Status: Acute (5) Palliative care encounter Current Visit: Yes Status: Acute - Time Spent With Patient Total time spent is greater than 50% in coordination of care (as documented) at patient's floor/unit and/or counseling patient: - Subjective Interval history: Patient has transferred off ICU - awake and alert. Inappropriate at times, but does have history of dementia. Niece here from [place] visiting patient. She denies any pain or discomfort. States breathing is improved. Utilized bipap last night. - Constitutional Vitals: Abnormal lab results RBC 3.38 M/mcL (3.82-4.97) L 05/18/19 04:40 Hgb 11.1 g/dL (11.5-15.4) L 05/18/19 04:40 MCV 105.3 fL (83.0-100.0) H 05/18/19 04:40 MCHC 31.2 g/dL (31.6-35.5) L 05/18/19 04:40 MPV 9.3 fL (9.4-12.4) L 05/18/19 04:40 0.4 K/mcL (0.6-4.6) L 05/17/19 04:00 2192 ng/mLFEU (0-500) H 05/16/19 01:57 ABG pH 7.55 pH Units (7.32-7.45) H 05/17/19 04:06 ABG pCO2 46 mmHg (35-45) H 05/17/19 04:06 ABG pO2 64 mmHg (85-104) L 05/17/19 04:06 ABG HCO3 40 mEq/L (21-27) H 05/17/19 04:06 ABG Total CO2 42 mEq/L (20-26) H 05/17/19 04:06 ABG O2 Saturation 94 % (95-98) L 05/17/19 04:06 ABG Base Excess 16 mEq/L (-2 to 3) H 05/17/19 04:06 VBG pH 7.46 pH Units (7.32-7.42) H 05/16/19 03:10 VBG pCO2 61 mmHg (41-51) H 05/16/19 03:10 VBG pO2 59 mmHg (25-50) H 05/16/19 03:10 VBG HCO3 43 mEq/L (21-27) H 05/16/19 03:10 Chloride 90 mEq/L (98-107) L 05/18/19 04:40 Carbon Dioxide 40 mEq/L (23-29) H* 05/18/19 04:40 BUN 24 mg/dL (8-23) H 05/18/19 04:40 0.55 mg/dL (0.60-1.20) L 05/18/19 04:40 44 (6-26) H 05/18/19 04:40 Glucose 133 mg/dL (70-105) H 05/18/19 04:40 POC Glucose 116 mg/dL (70-99) H 05/17/19 11:31 Magnesium 1.5 mg/dL (1.6-2.6) L 05/18/19 09:27 TSH 0.234 mcIU/mL (0.340-5.600) L 05/18/19 04:40 General appearance: Present: no acute distress - Respiratory Respiratory exam: Present: decreased breath sounds, CTAB - Cardiovascular Cardiovascular exam: Present: +S1, +S2 - GI/Abdominal GI/Abdominal exam: Present: distended, hypoactive bowel sounds, soft - Extremities Exam Extremities exam: Present: normal capillary refill, normal inspection - Neurological Exam Neurological exam: Present: alert, strengths equal and symetr throughout Additional comments: Oriented to name and place - reoriented to time. - Skin Skin exam: Present: dry, normal color, warm Palliative Quality Palliative Quality: Screen for Code Status: Yes, Screen for Goals of Care: Yes, Screen for Pain: Yes, Screen for Nausea/Vomitting: Yes Code Status: 05/16/19 10:26 Resuscitation Status: Active [RES] Routine Comment: Resuscitation Status: Full Code 05/16/19 18:36 CODE [Resuscitation Status: Active] [RES] Routine Comment: Resuscitation Status: DNR-Comfort Care-Arrest 05/19/19 11:12 DNR [Resuscitation Status: Active] [RES] Routine Comment: Resuscitation Status: [id number] - Labs CBC & Chem 7: 05/18/19 04:40 05/18/19 04:40 - ABG Interpretation ABG results: ABG ABG pH 7.55 pH Units (7.32-7.45) H 05/17/19 04:06 ABG pCO2 46 mmHg (35-45) H 05/17/19 04:06 ABG pO2 64 mmHg (85-104) L 05/17/19 04:06 ABG O2 Saturation 94 % (95-98) L 05/17/19 04:06 PT/INR, D-dimer 2192 ng/mLFEU (0-500) H 05/16/19 01:57 Consult Discharge Plan - Plan Referrals: Alisa Rojas MD [Primary Care Provider] - 05/22/19 10:30 am
--- NOTE | 2019-05-19 13:40 | Electrocardiograph Report ---
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
[2019-05-20] MEDS: Acetaminophen 325 MG TABLET PO PRN (03:08)
[2019-05-20 03:39] LABS: Hematocrit 38.5 % (35.3-44.9); Hemoglobin 11.6 g/dL (11.5-15.4); Mean Corpuscular HGB Conc 30.1 g/dL (31.6-35.5); Mean Corpuscular Hemoglobin 32.1 pg (28.0-33.3); Mean Corpuscular Volume 106.6 fL (83.0-100.0); Mean Platelet Volume 9.5 fL (9.4-12.4); Platelet Count 312 K/mcL (140-400); Red Blood Count 3.61 M/mcL (3.82-4.97); Red Cell Distribution Width 13.5 % (11.5-14.5); White Blood Count 10.5 K/mcL (4.3-11.1)
[2019-05-20 03:56] LABS: BUN/Creatinine Ratio 52 (6-26); Blood Urea Nitrogen 24 mg/dL (8-23); Calcium 8.7 mg/dL (8.6-10.3); Carbon Dioxide 38 mEq/L (23-29); Chloride 95 mEq/L (98-107); Glucose 114 mg/dL (70-105); Osmolality,Calculated 289 (280-300); Potassium 4.1 mEq/L (3.5-5.1); Sodium 137 mEq/L (136-145); eGFR For African Americans > 60 (> 60); eGFR For Non-African Americans > 60 (> 60)
[2019-05-20] MEDS: *HR* Heparin 5,000 UNIT/ML VIAL SQ SCH ×2 (06:03→17:04)
[2019-05-20] MEDS: MethylPREDNISolone 40 MG/ML VIAL IVP SCH ×2 (06:03→17:04)
[2019-05-20] MEDS: Pantoprazole 40 MG VIAL IVP SCH ×2 (06:43→07:17)
[2019-05-20] MEDS: Furosemide 40 MG/4 ML VIAL IVP SCH ×2 (07:21→17:04)
--- NOTE | 2019-05-20 08:03 | Internal Med Progress Note ---
Hospitalist Progress Note - Encounter Date of Encounter: 05/20/19 Time of Encounter: 11:07 - Exam Vitals: Temp Pulse Resp BP Pulse Ox 98.1 F 66 16 137/78 96 05/20/19 07:15 05/20/19 07:15 05/20/19 07:15 05/20/19 07:15 05/20/19 07:15 Exam: General appearance: NAD, non-labored breathing, converses without issue Eyes: nonicteric Auscultation: bilateral: Decreased breath sounds at bases Cardiovascular: RRR Gastrointestinal: normoactive bowel sounds, soft, non-tender Extremities: trace bipedal edema Musculoskeletal: no deformities Neuro: no focal deficits. - Assessment and Plan (1) Acute on chronic respiratory failure with hypoxia and hypercapnia Current Visit: Yes Status: Acute Assessment and Plan: Secondary to CHF exacerbation, COPD exacerbation and possibly due to narcotic given. Continue Solu Medrol, Lasix Duo Nebs, fluid restrictions. Dispo: Pending PT/OT evaluation to go back to [facility]. She was refusing PT/OT before but she is willing to do it tomorrow. (2) Goals of care, counseling/discussion Current Visit: Yes Status: Acute (3) CHF (congestive heart failure) Current Visit: No Status: Acute Assessment and Plan: as above (4) Metabolic encephalopathy Current Visit: No Status: Acute Assessment and Plan: resolved (5) DVT prophylaxis Current Visit: Yes Status: Acute Assessment and Plan: Heparin - Time Spent with Patient Total time spent is greater than 50% in coordination of care (as documented) at patient's floor/unit and/or counseling patient: Internal Medicine: Result - Labs CBC & Chem 7: 05/20/19 03:25 05/20/19 03:25 Labs: Short CBC 05/20/19 Range/Units 03:25 WBC 10.5 (4.3-11.1) K/mcL Hgb 11.6 (11.5-15.4) g/dL Hct 38.5 (35.3-44.9) % Plt Count 312 (140-400) K/mcL BMP 05/20/19 03:25 Sodium 137 Potassium 4.1 Chloride 95 L Carbon Dioxide 38 H BUN 24 H Creatinine 0.46 L Glucose 114 H Calcium 8.7 - ABG Interpretation ABG results: ABG ABG pH 7.55 pH Units (7.32-7.45) H 05/17/19 04:06 ABG pCO2 46 mmHg (35-45) H 05/17/19 04:06 ABG pO2 64 mmHg (85-104) L 05/17/19 04:06 ABG O2 Saturation 94 % (95-98) L 05/17/19 04:06 PT/INR, D-dimer 2192 ng/mLFEU (0-500) H 05/16/19 01:57 Consult Discharge Plan - Plan Referrals: Alisa Rojas MD [Primary Care Provider] - 05/22/19 10:30 am (3) CHF (congestive heart failure) Qualifiers: Heart failure type: diastolic Heart failure chronicity: unspecified Qualified Code(s): I50.30 - Unspecified diastolic (congestive) heart failure
--- NOTE | 2019-05-20 10:58 | Event Note ---
Date of Encounter: 05/20/19 Time of Encounter: 10:40 Patient feeling well, no overnight events. Tolerated bipap well. Awaiting PT/OT recommendations, may need rehab prior to going back to assisted living apt. Code status changed to DNR/DNi yesterday - state form completed and signed by patient. D/W daughter Mindy as well. Palliative not currently managing symptoms and will sign off. Please call if needed.
[2019-05-21 05:17] LABS: BUN/Creatinine Ratio 54 (6-26); Blood Urea Nitrogen 27 mg/dL (8-23); Calcium 9.3 mg/dL (8.6-10.3); Carbon Dioxide 37 mEq/L (23-29); Chloride 96 mEq/L (98-107); Glucose 128 mg/dL (70-105); Osmolality,Calculated 295 (280-300); Potassium 3.8 mEq/L (3.5-5.1); Sodium 139 mEq/L (136-145); eGFR For African Americans > 60 (> 60); eGFR For Non-African Americans > 60 (> 60)
[2019-05-21] MEDS: *HR* Heparin 5,000 UNIT/ML VIAL SQ SCH ×2 (06:37→16:55)
[2019-05-21] MEDS: MethylPREDNISolone 40 MG/ML VIAL IVP SCH ×2 (06:37→16:55)
[2019-05-21] MEDS ORDERED: Nystatin POWDER 30 GM BOTTLE TP PRN ×2 (07:34→08:30)
[2019-05-21] MEDS: Pantoprazole 40 MG VIAL IVP SCH (08:20)
[2019-05-21] MEDS: Furosemide 40 MG TABLET PO SCH ×2 (08:20→16:55)
--- NOTE | 2019-05-21 13:39 | Internal Med Progress Note ---
Hospitalist Progress Note - Encounter Date of Encounter: 05/21/19 Time of Encounter: 13:24 - Subjective Interval History: patient refused to work with PT/OT today because of wanting Prilosec before starting. she has no complaints of breathing difficulties. - Exam Vitals: Temp Pulse Resp BP Pulse Ox 98.3 F 66 16 112/72 94 05/21/19 11:56 05/21/19 11:56 05/21/19 11:56 05/21/19 11:56 05/21/19 11:56 Exam: General appearance: NAD, non-labored breathing, converses without issue Eyes: nonicteric Auscultation: bilateral: Decreased breath sounds at bases Cardiovascular: RRR Gastrointestinal: normoactive bowel sounds, soft, non-tender Extremities: trace bipedal edema Musculoskeletal: no deformities Neuro: no focal deficits. - Assessment and Plan (1) Acute on chronic respiratory failure with hypoxia and hypercapnia Current Visit: Yes Status: Acute Assessment and Plan: Secondary to CHF exacerbation, COPD exacerbation and possibly due to narcotic given. Continue Solu Medrol, Lasix Duo Nebs, fluid restrictions. Dispo: Pending PT/OT evaluation to go back to [facility]. She refused PT eval again today but we discussed and she is willing to comply (2) Goals of care, counseling/discussion Current Visit: Yes Status: Acute (3) CHF (congestive heart failure) Current Visit: No Status: Acute (4) Metabolic encephalopathy Current Visit: No Status: Acute (5) DVT prophylaxis Current Visit: Yes Status: Acute - Time Spent with Patient Total time spent is greater than 50% in coordination of care (as documented) at patient's floor/unit and/or counseling patient: Internal Medicine: Result - Labs CBC & Chem 7: 05/20/19 03:25 05/21/19 04:40 Labs: BMP 05/21/19 04:40 Sodium 139 Potassium 3.8 Chloride 96 L Carbon Dioxide 37 H BUN 27 H Creatinine 0.50 L Glucose 128 H Calcium 9.3 - ABG Interpretation ABG results: ABG ABG pH 7.55 pH Units (7.32-7.45) H 05/17/19 04:06 ABG pCO2 46 mmHg (35-45) H 05/17/19 04:06 ABG pO2 64 mmHg (85-104) L 05/17/19 04:06 ABG O2 Saturation 94 % (95-98) L 05/17/19 04:06 PT/INR, D-dimer 2192 ng/mLFEU (0-500) H 05/16/19 01:57 Consult Discharge Plan - Plan Referrals: Alisa Rojas MD [Primary Care Provider] - 05/22/19 10:30 am (3) CHF (congestive heart failure) Qualifiers: Heart failure type: diastolic Heart failure chronicity: unspecified Qualified Code(s): I50.30 - Unspecified diastolic (congestive) heart failure
[2019-05-21] MEDS: Primidone 50 MG TABLET PO SCH (15:34)
[2019-05-21] MEDS: Acetaminophen 325 MG TABLET PO PRN (15:42)
[2019-05-21] MEDS ORDERED: rOPINIRole 0.25 MG TABLET PO SCH (20:00)
[2019-05-21] MEDS ORDERED: Melatonin 3 MG TABLET PO SCH (20:00)
[2019-05-22] MEDS: MethylPREDNISolone 40 MG/ML VIAL IVP SCH (06:09)
[2019-05-22] MEDS: *HR* Heparin 5,000 UNIT/ML VIAL SQ SCH (06:10)
[2019-05-22] MEDS: Primidone 50 MG TABLET PO SCH (06:10)
[2019-05-22] MEDS: Furosemide 40 MG TABLET PO SCH (06:11)
[2019-05-22 06:46] LABS: BUN/Creatinine Ratio 60 (6-26); Blood Urea Nitrogen 32 mg/dL (8-23); Calcium 9.2 mg/dL (8.6-10.3); Carbon Dioxide 39 mEq/L (23-29); Chloride 95 mEq/L (98-107); Glucose 105 mg/dL (70-105); Osmolality,Calculated 295 (280-300); Potassium 4.4 mEq/L (3.5-5.1); Sodium 139 mEq/L (136-145); eGFR For African Americans > 60 (> 60); eGFR For Non-African Americans > 60 (> 60)
--- NOTE | 2019-05-22 07:35 | Internal Med Progress Note ---
Hospitalist Progress Note - Encounter Date of Encounter: 05/22/19 - Exam Vitals: Temp Pulse Resp BP Pulse Ox 98.8 F 76 16 126/67 91 05/22/19 05:35 05/22/19 05:35 05/22/19 05:35 05/22/19 05:35 05/22/19 05:35 - Assessment and Plan (1) Acute on chronic respiratory failure with hypoxia and hypercapnia Current Visit: Yes Status: Acute (2) Goals of care, counseling/discussion Current Visit: Yes Status: Acute (3) CHF (congestive heart failure) Current Visit: No Status: Acute (4) Metabolic encephalopathy Current Visit: No Status: Acute (5) DVT prophylaxis Current Visit: Yes Status: Acute - Time Spent with Patient Total time spent is greater than 50% in coordination of care (as documented) at patient's floor/unit and/or counseling patient: Internal Medicine: Result - Labs CBC & Chem 7: 05/20/19 03:25 05/22/19 06:10 Labs: BMP 05/22/19 06:10 Sodium 139 Potassium 4.4 Chloride 95 L Carbon Dioxide 39 H BUN 32 H Creatinine 0.53 L Glucose 105 Calcium 9.2 - ABG Interpretation ABG results: ABG ABG pH 7.55 pH Units (7.32-7.45) H 05/17/19 04:06 ABG pCO2 46 mmHg (35-45) H 05/17/19 04:06 ABG pO2 64 mmHg (85-104) L 05/17/19 04:06 ABG O2 Saturation 94 % (95-98) L 05/17/19 04:06 PT/INR, D-dimer 2192 ng/mLFEU (0-500) H 05/16/19 01:57 Consult Discharge Plan - Plan Referrals: Alisa Rojas MD [Primary Care Provider] - 05/22/19 10:30 am (3) CHF (congestive heart failure) Qualifiers: Heart failure type: diastolic Heart failure chronicity: unspecified [place] l[place] Code(s): I50.30 - Unspecified diastolic (congestive) heart failure
--- NOTE | 2019-05-22 10:52 | Discharge Summary ---
- NOTES TO OUTPATIENT PROVIDER Notes to Outpatient Provider: Prednisone taper. - Adjust diuretics as needed. - BMP in 5 days. Date of Encounter: 05/22/19 Time of Encounter: 10:52 - Discharge Diagnosis (1) Acute on chronic respiratory failure with hypoxia and hypercapnia Priority: Primary Status: Acute (2) Goals of care, counseling/discussion Priority: Secondary Status: Acute (3) CHF (congestive heart failure) Priority: Secondary Status: Acute Qualifiers: Heart failure type: diastolic Heart failure chronicity: unspecified Qualified Code(s): I50.30 - Unspecified diastolic (congestive) heart failure (4) Metabolic encephalopathy Priority: Secondary Status: Acute (5) DVT prophylaxis Priority: Secondary Status: Acute Hospital course: Ms. Abbott is a 78 year old female with PMHx of diastolic CHF, HTN, HLD, COPD (on 2L home oxygen), CAD. patient presented from [facility] to ED with chief complaint of chest pain. On arrival patient was obtunded and did not respond to sternal rub. She received one dose of Narcan and was more awake but did not answer questions appropriately. Per ED documentation, patient was having left sided chest pain that was worse compared to her prior chest pain wi th oxygen saturations in the 90s. In Ed, she recieved PO morphine, and nitroglycerin x2 and was admitted for further workup of chest pain. She required transfer to ICU. CTA was negative for PE. CO2 significantly elevated at 111 consistent with CO2 narcosis. She also had imaging showing CHF exacerbation. She required intubation in ICU. Patient was admitted as a full code. Palliative was consulted and discussed issues with patient and then was made DNR CCA/DNI. She was successfully extubated in the ICU. Patient was monitored out of the ICU and tolerated her baseline oxygen. She was discharged back to [facility]. - Time Spent with Patient Total time spent providing and/or coordinating discharge services: - Discharge Medications Prescriptions: Continued Ropinirole HCl [Requip] 0.5 mg PO 2000 Primidone [Mysoline] 50 mg PO 0600,1600 Omeprazole [PriLOSEC] 20 mg PO 0600 Metoprolol [Lopressor] 25 mg PO 0600,1600 Famciclovir 500 mg PO 0600,1600 Enalapril Maleate [Vasotec] 5 mg PO 0600,1600 Dicyclomine [Bentyl] 10 mg PO TID PRN PRN Reason: Irritable Bowel Clopidogrel [Plavix] 75 mg PO 0600 Fluticasone/Vilanterol [Breo Ellipta 200-25 Mcg INH] 1 puff IH 1800 Atorvastatin Calcium [Lipitor] 20 mg PO 1999 Melatonin 5 mg PO 1999 Acetaminophen [Tylenol] 650 mg PO BID PRN PRN Reason: LOW BACK PAIN Albuterol Sulfate [Proair Hfa] 2 puff PO Q4H PRN PRN Reason: Shortness Of Breath Nystatin 1 appl TP PRN PRN PRN Reason: Rash Ipratropium/Albuterol Neb [Duoneb] 3 ml IH Q6HR PRN #30 inhsol PRN Reason: Shortness Of Breath/Wheezing Discontinued Alendronate Sodium 70 mg PO CARDOZA@0600 Rizatriptan Benzoate [Maxalt] 10 mg PO PRN PRN PRN Reason: Migraine Headache Home Medications: Atorvastatin Calcium [Lipitor] 20 mg PO 199901/18/19 [History] Clopidogrel [Plavix] 75 mg PO 0600 01/18/19 [History] Dicyclomine [Bentyl] 10 mg PO TID PRN 01/18/19 [History] Enalapril Maleate [Vasotec] 5 mg PO 0600,159901/18/19 [History] Famciclovir 500 mg PO 0600,159901/18/19 [History] Fluticasone/Vilanterol [Breo Ellipta 200-25 Mcg INH] 1 puff IH 1800 01/18/19 [History] Melatonin 5 mg PO 199901/18/19 [History] Metoprolol [Lopressor] 25 mg PO 0600,159901/18/19 [History] Omeprazole [PriLOSEC] 20 mg PO 0600 01/18/19 [History] Primidone [Mysoline] 50 mg PO 0600,159901/18/19 [History] Ropinirole HCl [Requip] 0.5 mg PO 199901/18/19 [History] Acetaminophen [Tylenol] 650 mg PO BID PRN 04/11/19 [History] Albuterol Sulfate [Proair Hfa] 2 puff PO Q4H PRN 04/27/19 [History] Nystatin 1 appl TP PRN PRN 04/27/19 [History] Ipratropium/Albuterol Neb [Duoneb] 3 ml IH Q6HR PRN #30 inhsol 05/01/19 [Rx] Furosemide [Lasix] 20 mg PO BID #14 tablet 05/22/19 [Rx] predniSONE [PredniSONE] 10 mg PO DAILY #21 tablet 05/22/19 [Rx] Allergies/Adverse Reactions: Allergy/AdvReac Type Severity Reaction Status Date / Time aspirin Allergy Rash Verified 04/27/19 19:24 bee venom protein (honey bee) Allergy Swelling Verified 04/27/19 19:24 of Lip/Tongue/Throat codeine Allergy Rash Verified 04/27/19 19:24 Date of admission: 05/16/19 18:32 Primary care physician: Alisa Rojas MD Consults: 05/16/19 10:20 Consult to Materials Planning Manager [CONS] Routine Reason for SW Consult: POSSIBLE SNF PLACEMENT 05/16/19 11:49 Consult to Critical Care [CONS] Routine Consulting Provider: [facility] [place] Reason for Consult: acute resp failure Call Completed: Yes 05/16/19 18:36 Consult to Palliative Care [CONS] Routine Comment: Consulting Provider: Palliative Care D[facility]a Reason for Consult: goals of care, pt family requested Call Completed: No 05/18/19 14:52 Consult to Occupational Therapy [CONS] Routine Comment: Evaluate, develop and implement POC Reason for Consult: From [facility], was getting rehab. Does patient have active BEDREST order?: No Is patient medically & hemodynamically stable?: Yes Patient assessed for mobility or mobilized this visit?: Yes 05/21/19 08:22 Consult to Nurse Navigator [CONS] Routine Comment: chf, copd Discharging clinician: Fabiana Ballard - Constitutional Vitals: Temp Pulse Resp BP Pulse Ox 98.6 F 62 18 139/67 87 05/22/19 07:36 05/22/19 07:36 05/22/19 07:36 05/22/19 07:36 05/22/19 07:36 Exam: General appearance: NAD, non-labored breathing, converses without issue Eyes: nonicteric Auscultation: bilateral: Decreased breath sounds at bases Cardiovascular: RRR Gastrointestinal: normoactive bowel sounds, soft, non-tender Extremities: trace bipedal edema Musculoskeletal: no deformities Neuro: no focal deficits. - Patient Status Disposition: Transfer SNF Condition: Fair Functional capacity at discharge: uses cane/walker Overall status at discharge: patient is progressing back to baseline - Discharge Instructions Follow Up With: Alisa Rojas MD [Primary Care Provider] - 05/22/19 10:30 am - Diet and Activity Activity: as per physical therapy Diet: advance to your usual diet
[2019-05-22 11:15] VITALS: BP 116/75
--- NOTE | 2019-05-22 11:27 | Physician Discharge Referral ---
ExtendedCare Referral Info Institutional Level of Care: Skilled - Diagnosis (1) Acute on chronic respiratory failure with hypoxia and hypercapnia Priority: Primary Status: Acute (2) Goals of care, counseling/discussion Priority: Secondary Status: Acute (3) CHF (congestive heart failure) Priority: Secondary Status: Acute (4) Metabolic encephalopathy Priority: Secondary Status: Acute (5) DVT prophylaxis Priority: Secondary Status: Acute - Transfer Medications Prescriptions: Furosemide [Lasix] 20 mg PO BID #14 tablet predniSONE [PredniSONE] 10 mg PO DAILY #21 tablet Home Medications: Atorvastatin Calcium [Lipitor] 20 mg PO 199901/18/19 [History] Clopidogrel [Plavix] 75 mg PO 0600 01/18/19 [History] Dicyclomine [Bentyl] 10 mg PO TID PRN 01/18/19 [History] Enalapril Maleate [Vasotec] 5 mg PO 0600,1600 01/18/19 [History] Famciclovir 500 mg PO 0600,1600 01/18/19 [History] Fluticasone/Vilanterol [Breo Ellipta 200-25 Mcg INH] 1 puff IH 1800 01/18/19 [History] Melatonin 5 mg PO 199901/18/19 [History] Metoprolol [Lopressor] 25 mg PO 0600,1600 01/18/19 [History] Omeprazole [PriLOSEC] 20 mg PO 0600 01/18/19 [History] Primidone [Mysoline] 50 mg PO 0600,1600 01/18/19 [History] Ropinirole HCl [Requip] 0.5 mg PO 199901/18/19 [History] Acetaminophen [Tylenol] 650 mg PO BID PRN 04/11/19 [History] Albuterol Sulfate [Proair Hfa] 2 puff PO Q4H PRN 04/27/19 [History] Nystatin 1 appl TP PRN PRN 04/27/19 [History] Ipratropium/Albuterol Neb [Duoneb] 3 ml IH Q6HR PRN #30 inhsol 05/01/19 [Rx] Furosemide [Lasix] 20 mg PO BID #14 tablet 05/22/19 [Rx] predniSONE [PredniSONE] 10 mg PO DAILY #21 tablet 05/22/19 [Rx] Allergies/Adverse Reactions: Allergy/AdvReac Type Severity Reaction Status Date / Time aspirin Allergy Rash Verified 04/27/19 19:24 bee venom protein (honey bee) Allergy Swelling Verified 04/27/19 19:24 of Lip/Tongue/Throat codeine Allergy Rash Verified 04/27/19 19:24 - Respiratory Orders Oxygen / L per min Smoking Cessation: Smoking cessation has been advised. For more information, call the [place] Tobacco Quit Line at 8-395-HHVO-NOW. - Advance Directives Code Status: DNR-Arrest/Don't Intubate - Mobility Orders Chair - Rehabiliation Orders Rehab Orders: Evaluation for Physical Therapy, Evaluation for Occupational Therapy - Diet Orders Cardiac CERTIFICATION: I certify that the transfer of the above named patient to an Extended Care Facility is necessary for the continuing treatment of the diagnosis listed. The above information is true and accurate reflection of patient's current condition. Confidential - Redisclosure prohibited without a patient's written consent.
== END 2019-05-22 12:42 | DRG 291 ==
LOC: EMEROOARM 00:10 → 3BNU 00:10 → ICNU 12:02 → SUATTDRO 18:32 → 2ANU 05-18 15:55
PROVIDERS: ADMIT Internal Medicine; ATTEND Student in an Organized Health Care Education/Training Program

== ENCOUNTER 2019-09-07 08:40 | Inpatient (IN) ==
[2019-09-07 09:20] LABS: Basophils % 0.1 %; Eosinophils # 0.1 K/mcL (0.0-0.6); Eosinophils % 1.7 %; Hematocrit 39.4 % (35.3-44.9); Immature Granulocytes % 0.6 % (0-4); Lymphocytes # 1.3 K/mcL (0.6-4.6); Lymphocytes % 17.5 %; Mean Corpuscular HGB Conc 30.5 g/dL (31.6-35.5); Mean Corpuscular Hemoglobin 32.3 pg (28.0-33.3); Mean Corpuscular Volume 106.2 fL (83.0-100.0); Mean Platelet Volume 9.6 fL (9.4-12.4); Monocytes # 0.5 K/mcL (0.0-1.3); Monocytes % 7.4 %; Neutrophils # 5.3 K/mcL (1.6-8.9); Platelet Count 317 K/mcL (140-400); Red Blood Count 3.71 M/mcL (3.82-4.97); Red Cell Distribution Width 13.1 % (11.5-14.5); Segmented Neutrophils % 72.7 %; White Blood Count 7.3 K/mcL (4.3-11.1)
[2019-09-07 09:29] LABS: Prothrombin Time 11.3 Seconds (9.4-12.1)
[2019-09-07 09:51] LABS: BUN/Creatinine Ratio 43 (6-26); Blood Urea Nitrogen 23 mg/dL (8-23); Calcium 10.1 mg/dL (8.6-10.3); Carbon Dioxide 36 mEq/L (23-29); Chloride 97 mEq/L (98-107); Glucose 98 mg/dL (70-105); Osmolality,Calculated 296 (280-300); Potassium 4.4 mEq/L (3.5-5.1); Sodium 141 mEq/L (136-145); Troponin I < 0.03 ng/mL (< 0.04); eGFR For African Americans > 60 (> 60); eGFR For Non-African Americans > 60 (> 60)
[2019-09-07 10:39] LABS: Bilirubin,Urine Negative (Negative); Blood,Urine Negative (Negative); Clarity,Urine Clear (Clear); Color,Urine Yellow (Yellow); Glucose,Urine (UA) Normal (Normal); Ketones,Urine Negative (Negative); Leukocyte Esterase,Urine Negative (Negative); Nitrite,Urine Negative (Negative); PH,Urine 6.5 pH Units (5.0-8.0); Protein,Urine Negative (Neg-Trace); Specific Gravity,Urine 1.019 (1.010-1.025); Urobilinogen,Urine Normal (Normal)
[2019-09-07] MEDS ORDERED: MOM Conc 10 ML UD.LIQ PO PRN (12:41)
[2019-09-07] MEDS ORDERED: Naloxone 0.4 MG/ML INJ IVP PRN (12:41)
[2019-09-07] MEDS ORDERED: Mag Hydrox/Al Hydrox/Simeth 30 ML UDC PO PRN (12:41)
[2019-09-07] MEDS ORDERED: Acetaminophen 325 MG TABLET PO PRN ×2 (12:41→18:59)
[2019-09-07] MEDS ORDERED: Ondansetron ODT 4 MG TAB.RAPDIS SL PRN (12:41)
[2019-09-07] MEDS: traMADol 50 MG TABLET PO PRN (13:56)
[2019-09-07] MEDS ORDERED: Ipratropium/Albuterol Neb 3 ML IH PRN (18:59)
[2019-09-07] MEDS ORDERED: Nystatin Cream 15 GM TUBE TP PRN (18:59)
[2019-09-07] MEDS ORDERED: FAMCICLOVIR 500 MG PO SCH (21:00)
[2019-09-07] MEDS: Fluticasone Propionate Nasal 50 MCG/SPRAY BOTTLE NS SCH (22:29)
[2019-09-07] MEDS: rOPINIRole 0.25 MG TABLET PO SCH (22:29)
[2019-09-07] MEDS: Primidone 50 MG TABLET PO SCH (22:29)
[2019-09-07] MEDS: Melatonin 3 MG TABLET PO SCH (22:29)
[2019-09-07] MEDS: Budesonide/Formoterol 160/4.5 1 PUFF INH IH SCH (22:40)
[2019-09-08] MEDS: traMADol 50 MG TABLET PO PRN ×3 (00:07→20:16)
[2019-09-08] MEDS: Budesonide/Formoterol 160/4.5 1 PUFF INH IH SCH ×2 (07:22→22:03)
[2019-09-08] MEDS: Lisinopril 20 MG TABLET PO SCH (08:27)
[2019-09-08] MEDS: Primidone 50 MG TABLET PO SCH ×2 (08:27→20:16)
[2019-09-08] MEDS: Fluticasone Propionate Nasal 50 MCG/SPRAY BOTTLE NS SCH ×2 (08:34→20:18)
[2019-09-08] MEDS ORDERED: NON-FORMULARY MEDICATION 1 EACH EACH (Fluticasone/Vilanterol [Breo Ellipta 200-25 Mcg Inh] IH SCH (09:00)
[2019-09-08 09:56] LABS: Hematocrit 42.5 % (35.3-44.9); Mean Corpuscular HGB Conc 30.6 g/dL (31.6-35.5); Mean Corpuscular Hemoglobin 32.7 pg (28.0-33.3); Mean Corpuscular Volume 106.8 fL (83.0-100.0); Mean Platelet Volume 9.4 fL (9.4-12.4); Platelet Count 290 K/mcL (140-400); Red Blood Count 3.98 M/mcL (3.82-4.97); Red Cell Distribution Width 12.7 % (11.5-14.5); White Blood Count 8.7 K/mcL (4.3-11.1)
[2019-09-08 10:17] LABS: BUN/Creatinine Ratio 32 (6-26); Blood Urea Nitrogen 16 mg/dL (8-23); Calcium 9.9 mg/dL (8.6-10.3); Carbon Dioxide 33 mEq/L (23-29); Chloride 97 mEq/L (98-107); Glucose 120 mg/dL (70-105); Magnesium 1.6 mg/dL (1.6-2.6); Osmolality,Calculated 282 (280-300); Potassium 3.9 mEq/L (3.5-5.1); Sodium 135 mEq/L (136-145); eGFR For African Americans > 60 (> 60); eGFR For Non-African Americans > 60 (> 60)
[2019-09-08] MEDS ORDERED: rOPINIRole 0.25 MG TABLET PO SCH (18:00)
[2019-09-08] MEDS: rOPINIRole 0.25 MG TABLET PO SCH (19:30)
[2019-09-08] MEDS: Melatonin 3 MG TABLET PO SCH ×2 (20:17→22:59)
[2019-09-09] MEDS: Budesonide/Formoterol 160/4.5 1 PUFF INH IH SCH ×2 (07:37→22:09)
[2019-09-09] MEDS: Cyanocobalamin (B-12) 1,000 MCG TABLET PO SCH (07:55)
[2019-09-09] MEDS: Fluticasone Propionate Nasal 50 MCG/SPRAY BOTTLE NS SCH ×2 (07:56→21:07)
[2019-09-09] MEDS: Lisinopril 20 MG TABLET PO SCH (07:56)
[2019-09-09] MEDS: Primidone 50 MG TABLET PO SCH ×2 (07:56→21:07)
[2019-09-09] MEDS: traMADol 50 MG TABLET PO PRN ×2 (10:50→21:07)
[2019-09-09] MEDS: rOPINIRole 0.25 MG TABLET PO SCH (17:08)
[2019-09-09] MEDS: Melatonin 3 MG TABLET PO SCH (21:07)
[2019-09-10] MEDS: Budesonide/Formoterol 160/4.5 1 PUFF INH IH SCH ×2 (07:41→20:09)
[2019-09-10] MEDS: Cyanocobalamin (B-12) 1,000 MCG TABLET PO SCH (07:47)
[2019-09-10] MEDS: Primidone 50 MG TABLET PO SCH ×3 (07:48→20:57)
[2019-09-10] MEDS: Lisinopril 20 MG TABLET PO SCH (07:48)
[2019-09-10] MEDS: traMADol 50 MG TABLET PO PRN (09:59)
[2019-09-10] MEDS: Fluticasone Propionate Nasal 50 MCG/SPRAY BOTTLE NS SCH ×2 (10:02→20:49)
[2019-09-10] MEDS: rOPINIRole 0.25 MG TABLET PO SCH (17:43)
[2019-09-10] MEDS: Melatonin 3 MG TABLET PO SCH (20:48)
[2019-09-11] MEDS: Cyanocobalamin (B-12) 1,000 MCG TABLET PO SCH (08:25)
[2019-09-11] MEDS: traMADol 50 MG TABLET PO PRN (08:25)
[2019-09-11] MEDS: Primidone 50 MG TABLET PO SCH ×2 (08:26→08:40)
[2019-09-11] MEDS: Lisinopril 20 MG TABLET PO SCH (08:26)
[2019-09-11 08:32] LABS: Hematocrit 39.1 % (35.3-44.9); Hemoglobin 12.4 g/dL (11.5-15.4); Mean Corpuscular HGB Conc 31.7 g/dL (31.6-35.5); Mean Corpuscular Hemoglobin 33.2 pg (28.0-33.3); Mean Corpuscular Volume 104.5 fL (83.0-100.0); Mean Platelet Volume 9.3 fL (9.4-12.4); Platelet Count 292 K/mcL (140-400); Red Blood Count 3.74 M/mcL (3.82-4.97); Red Cell Distribution Width 12.9 % (11.5-14.5); White Blood Count 7.4 K/mcL (4.3-11.1)
[2019-09-11] MEDS: Fluticasone Propionate Nasal 50 MCG/SPRAY BOTTLE NS SCH (08:33)
[2019-09-11 08:50] LABS: BUN/Creatinine Ratio 38 (6-26); Blood Urea Nitrogen 18 mg/dL (8-23); Calcium 10.2 mg/dL (8.6-10.3); Carbon Dioxide 34 mEq/L (23-29); Chloride 97 mEq/L (98-107); Glucose 100 mg/dL (70-105); Osmolality,Calculated 284 (280-300); Potassium 4.6 mEq/L (3.5-5.1); Sodium 136 mEq/L (136-145); eGFR For African Americans > 60 (> 60); eGFR For Non-African Americans > 60 (> 60)
[2019-09-11 10:33] VITALS: BP 101/66
[2019-09-11] MEDS ORDERED: *HR* HYDROmorphone (PF) 1 MG/ML SYRINGE IM ONE (12:27)
== END 2019-09-11 14:09 | DRG 552 ==
LOC: 3ANU 08:40 → EMEROOARM 08:40 → SUATTDRO 11:48 → 3ANU 12:15
PROVIDERS: ADMIT Internal Medicine; ATTEND Family Medicine

== ENCOUNTER 2019-10-01 13:48 | Inpatient (IN) ==
[2019-10-01 14:20] LABS: Prothrombin Time 11.1 Seconds (9.4-12.1)
[2019-10-01 14:23] LABS: Activated Partial Thrombo Time 28.1 Seconds (26.0-36.0)
[2019-10-01 14:31] LABS: Bilirubin,Urine Negative (Negative); Blood,Urine Negative (Negative); Clarity,Urine Clear (Clear); Color,Urine Yellow (Yellow); Glucose,Urine (UA) Normal (Normal); Ketones,Urine Negative (Negative); Leukocyte Esterase,Urine Small (Negative); Nitrite,Urine Negative (Negative); Protein,Urine Negative (Neg-Trace); Specific Gravity,Urine 1.012 (1.010-1.025); Urobilinogen,Urine Normal (Normal)
[2019-10-01 14:31] LABS: Basophils % 0.1 %; Eosinophils # 0.1 K/mcL (0.0-0.6); Eosinophils % 0.6 %; Hemoglobin 12.1 g/dL (11.5-15.4); Immature Granulocytes % 0.4 % (0-4); Lymphocytes # 0.9 K/mcL (0.6-4.6); Lymphocytes % 11.1 %; Mean Corpuscular HGB Conc 29.5 g/dL (31.6-35.5); Mean Corpuscular Hemoglobin 32.4 pg (28.0-33.3); Mean Corpuscular Volume 109.6 fL (83.0-100.0); Mean Platelet Volume 9.4 fL (9.4-12.4); Monocytes # 0.6 K/mcL (0.0-1.3); Monocytes % 7.4 %; Neutrophils # 6.2 K/mcL (1.6-8.9); Platelet Count 327 K/mcL (140-400); Red Blood Count 3.74 M/mcL (3.82-4.97); Red Cell Distribution Width 13.1 % (11.5-14.5); Segmented Neutrophils % 80.4 %; White Blood Count 7.7 K/mcL (4.3-11.1)
[2019-10-01 14:35] LABS: Bacteria,Urine Few per hpf (None-Few); Hyaline Casts,Urine None Seen per lpf (None-Few); RBC,Urine 0-3 per hpf (0-3); Squamous Epithelial Cell,Urine None Seen per lpf (None-Few); WBC,Urine 15-30 per hpf (0-3)
[2019-10-01 14:45] LABS: Amphetamine Screen,Urine Negative ng/mL (Cutoff=1000); Barbiturate Screen,Urine Negative ng/mL (Cutoff=200); Benzodiazepines Screen,Urine Negative ng/mL (Cutoff=200); Cannabinoid Screen,Urine Negative ng/mL (Cutoff = 50); Cocaine Screen,Urine Negative ng/mL (Cutoff= 300); Opiate Screen,Urine Negative ng/mL (Cutoff=300); Phencyclidine Screen,Urine Negative ng/mL (Cutoff=25)
[2019-10-01 14:56] LABS: Alanine Aminotransferase 14 Units/L (7-52); Albumin 3.9 g/dL (3.5-5.7); Albumin/Globulin Ratio 1.1 (1.1-2.2); Alkaline Phosphatase 70 Units/L (34-104); Aspartate Amino Transferase 12 Units/L (13-39); BUN/Creatinine Ratio 49 (6-26); Bilirubin,Indirect 0.3 mg/dL (0.0-1.0); Bilirubin,Total 0.3 mg/dL (0.3-1.0); Blood Urea Nitrogen 27 mg/dL (8-23); Calcium 10.1 mg/dL (8.6-10.3); Carbon Dioxide 40 mEq/L (23-29); Chloride 93 mEq/L (98-107); Creatine Kinase 12 Units/L (30-223); Ethanol < 10 mg/dL (Less than 10); Globulin 3.4 g/dL (2.4-3.5); Glucose 120 mg/dL (70-105); Osmolality,Calculated 286 (280-300); Potassium 4.9 mEq/L (3.5-5.1); Sodium 135 mEq/L (136-145); Thyroid Stimulating Hormone 0.662 mcIU/mL (0.340-5.600); Total Protein 7.3 g/dL (6.4-8.9); Troponin I < 0.03 ng/mL (< 0.04); eGFR For African Americans > 60 (> 60); eGFR For Non-African Americans > 60 (> 60)
[2019-10-01] MEDS ORDERED: Piperacillin/Tazobactam 3.375 GM in 0.9 % Sodium Chloride Mini Bag 100 ML IVPB STA (15:27)
[2019-10-01] MEDS ORDERED: Isovue-370 500 ML BOTTLE IVP ONE (15:52)
[2019-10-01] MEDS ORDERED: Naloxone 0.4 MG/ML INJ IVP PRN (17:51)
[2019-10-01] MEDS ORDERED: traMADol 50 MG TABLET PO PRN (18:33)
[2019-10-01] MEDS ORDERED: NON-FORMULARY MEDICATION 1 EACH EACH (Rizatriptan Benzoate [Maxalt] 10 MG) PO PRN (18:33)
[2019-10-01] MEDS ORDERED: Ipratropium/Albuterol Neb 3 ML IH PRN (18:33)
[2019-10-01] MEDS ORDERED: Acetaminophen 325 MG TABLET PO PRN (18:33)
[2019-10-01 21:13] LABS: ABG Base Excess 13 mEq/L (-2 to 3); ABG HCO3 41 mEq/L (21-27); ABG Oxygen Saturation 87 % (95-98); ABG PCO2 71 mmHg (35-45); ABG PH 7.37 pH Units (7.32-7.45); ABG PO2 58 mmHg (85-104); ABG TCO2 43 mEq/L (20-26)
[2019-10-01] MEDS: rOPINIRole 0.25 MG TABLET PO SCH (21:38)
[2019-10-01] MEDS: Melatonin 3 MG TABLET PO SCH (21:38)
[2019-10-01] MEDS: Gabapentin 300 MG CAPSULE PO SCH (21:39)
[2019-10-01] MEDS: Azithromycin 500 MG in 0.9 % Sodium Chloride 250 ML IVPB SCH (21:39)
[2019-10-01] MEDS: Primidone 50 MG TABLET PO SCH (21:39)
[2019-10-01] MEDS: Fluticasone Propionate Nasal 50 MCG/SPRAY BOTTLE NS SCH (21:39)
[2019-10-02 04:58] LABS: ABG Base Excess 12 mEq/L (-2 to 3); ABG HCO3 42 mEq/L (21-27); ABG Oxygen Saturation 83 % (95-98); ABG PCO2 85 mmHg (35-45); ABG PH 7.31 pH Units (7.32-7.45); ABG PO2 56 mmHg (85-104); ABG TCO2 45 mEq/L (20-26)
[2019-10-02 05:55] LABS: Basophils % 0.2 %; Eosinophils # 0.1 K/mcL (0.0-0.6); Eosinophils % 0.8 %; Hematocrit 38.1 % (35.3-44.9); Hemoglobin 11.6 g/dL (11.5-15.4); Immature Granulocytes % 0.6 % (0-4); Lymphocytes # 0.8 K/mcL (0.6-4.6); Lymphocytes % 7.5 %; Mean Corpuscular HGB Conc 30.4 g/dL (31.6-35.5); Mean Corpuscular Volume 105.2 fL (83.0-100.0); Mean Platelet Volume 9.4 fL (9.4-12.4); Monocytes # 0.6 K/mcL (0.0-1.3); Neutrophils # 8.7 K/mcL (1.6-8.9); Platelet Count 297 K/mcL (140-400); Red Blood Count 3.62 M/mcL (3.82-4.97); Segmented Neutrophils % 84.9 %; White Blood Count 10.2 K/mcL (4.3-11.1)
[2019-10-02 06:17] LABS: BUN/Creatinine Ratio 52 (6-26); Blood Urea Nitrogen 26 mg/dL (8-23); Calcium 9.7 mg/dL (8.6-10.3); Carbon Dioxide 37 mEq/L (23-29); Chloride 97 mEq/L (98-107); Glucose 93 mg/dL (70-105); Osmolality,Calculated 290 (280-300); Sodium 138 mEq/L (136-145); eGFR For African Americans > 60 (> 60); eGFR For Non-African Americans > 60 (> 60)
[2019-10-02] MEDS: Fluticasone Propionate Nasal 50 MCG/SPRAY BOTTLE NS SCH ×2 (08:14→21:04)
[2019-10-02] MEDS: Primidone 50 MG TABLET PO SCH ×2 (08:17→21:02)
[2019-10-02] MEDS: Gabapentin 300 MG CAPSULE PO SCH ×2 (08:17→21:02)
[2019-10-02] MEDS: cefTRIAXone 1,000 MG in Water for inj. (sterile) 10 ML IVP SCH (08:18)
[2019-10-02 08:25] LABS: Adenovirus Not Detected (Not Detect); Bordetella Pertussis Not Detected (Not Detect); Chlamydophila pneumoniae Not Detected (Not Detect); Coronavirus 229E Not Detected (Not Detect); Coronavirus HKU1 Not Detected (Not Detect); Coronavirus NL63 Not Detected (Not Detect); Coronavirus OC43 Not Detected (Not Detect); Human Metapneumovirus Not Detected (Not Detect); Human Rhinovirus/Enterovirus Not Detected (Not Detect); Influenza A Subtype 2009 H1 Not Detected (Not Detect); Influenza A Untypeable Not Detected (Not Detect); Influenza B Not Detected (Not Detect); Mycoplasma pneumoniae Not Detected (Not Detect); Parainfluenza Virus 1 Not Detected (Not Detect); Parainfluenza Virus 2 Not Detected (Not Detect); Parainfluenza Virus 3 Not Detected (Not Detect); Parainfluenza Virus 4 Not Detected (Not Detect); Respiratory Syncytial Virus Not Detected (Not Detect)
[2019-10-02] MEDS: Azithromycin 500 MG in 0.9 % Sodium Chloride 250 ML IVPB SCH (18:07)
[2019-10-02] MEDS: Budesonide/Formoterol 80/4.5 1 PUFF INH IH SCH (19:48)
[2019-10-02] MEDS: rOPINIRole 0.25 MG TABLET PO SCH (21:02)
[2019-10-02] MEDS: Melatonin 3 MG TABLET PO SCH (21:03)
[2019-10-03 06:02] LABS: BUN/Creatinine Ratio 74 (6-26); Blood Urea Nitrogen 35 mg/dL (8-23); Carbon Dioxide 38 mEq/L (23-29); Chloride 96 mEq/L (98-107); Glucose 84 mg/dL (70-105); Osmolality,Calculated 295 (280-300); Sodium 139 mEq/L (136-145); eGFR For African Americans > 60 (> 60); eGFR For Non-African Americans > 60 (> 60)
[2019-10-03] MEDS: Budesonide/Formoterol 80/4.5 1 PUFF INH IH SCH ×2 (07:52→20:03)
[2019-10-03] MEDS: Primidone 50 MG TABLET PO SCH ×2 (08:48→21:37)
[2019-10-03] MEDS: Fluticasone Propionate Nasal 50 MCG/SPRAY BOTTLE NS SCH ×2 (08:49→21:44)
[2019-10-03] MEDS: cefTRIAXone 1,000 MG in Water for inj. (sterile) 10 ML IVP SCH (08:49)
[2019-10-03] MEDS: Gabapentin 300 MG CAPSULE PO SCH ×2 (08:49→21:37)
[2019-10-03 13:35] LABS: ABG Base Excess 12 mEq/L (-2 to 3); ABG HCO3 39 mEq/L (21-27); ABG Oxygen Saturation 86 % (95-98); ABG PCO2 62 mmHg (35-45); ABG PH 7.41 pH Units (7.32-7.45); ABG PO2 54 mmHg (85-104); ABG TCO2 41 mEq/L (20-26)
[2019-10-03] MEDS: Ampicillin/Sulbactam 3,000 MG in 0.9 % Sodium Chloride Mini Bag 100 ML IVPB SCH (18:20)
[2019-10-03] MEDS: Melatonin 3 MG TABLET PO SCH (21:37)
[2019-10-03] MEDS: rOPINIRole 0.25 MG TABLET PO SCH (21:37)
[2019-10-04] MEDS: Ampicillin/Sulbactam 3,000 MG in 0.9 % Sodium Chloride Mini Bag 100 ML IVPB SCH ×3 (01:11→11:20)
[2019-10-04 05:42] LABS: Basophils % 0.3 %; Eosinophils # 0.2 K/mcL (0.0-0.6); Eosinophils % 1.9 %; Hemoglobin 11.1 g/dL (11.5-15.4); Immature Granulocytes % 0.4 % (0-4); Lymphocytes % 13.2 %; Mean Corpuscular Hemoglobin 32.2 pg (28.0-33.3); Mean Corpuscular Volume 107.2 fL (83.0-100.0); Mean Platelet Volume 9.5 fL (9.4-12.4); Monocytes # 0.6 K/mcL (0.0-1.3); Monocytes % 7.9 %; Platelet Count 278 K/mcL (140-400); Red Blood Count 3.45 M/mcL (3.82-4.97); Red Cell Distribution Width 13.3 % (11.5-14.5); Segmented Neutrophils % 76.3 %; White Blood Count 7.9 K/mcL (4.3-11.1)
[2019-10-04 06:02] LABS: BUN/Creatinine Ratio 59 (6-26); Blood Urea Nitrogen 23 mg/dL (8-23); Calcium 9.9 mg/dL (8.6-10.3); Carbon Dioxide 39 mEq/L (23-29); Chloride 94 mEq/L (98-107); Glucose 102 mg/dL (70-105); Osmolality,Calculated 290 (280-300); Potassium 4.4 mEq/L (3.5-5.1); Sodium 138 mEq/L (136-145); eGFR For African Americans > 60 (> 60); eGFR For Non-African Americans > 60 (> 60)
[2019-10-04] MEDS: Budesonide/Formoterol 80/4.5 1 PUFF INH IH SCH (07:56)
[2019-10-04] MEDS: Gabapentin 300 MG CAPSULE PO SCH (08:49)
[2019-10-04] MEDS: Primidone 50 MG TABLET PO SCH (08:49)
[2019-10-04] MEDS: Fluticasone Propionate Nasal 50 MCG/SPRAY BOTTLE NS SCH (08:50)
[2019-10-04 11:24] VITALS: BP 105/60
== END 2019-10-04 15:06 | DRG 193 ==
LOC: 3ANU 13:48 → EMEROOARM 13:48 → 3ANU 18:50 → SUATTDRO 10-02 16:10
PROVIDERS: ADMIT Internal Medicine; ATTEND Family Medicine

== ENCOUNTER 2019-10-18 14:17 | Inpatient (IN) ==
[2019-10-18] MEDS ORDERED: Isovue-370 500 ML BOTTLE IVP ONE (15:12)
[2019-10-18 15:55] LABS: Prothrombin Time 11.4 Seconds (9.4-12.1)
[2019-10-18 15:57] LABS: Activated Partial Thrombo Time 26.7 Seconds (26.0-36.0); Basophils % 0.1 %; Eosinophils # 0.1 K/mcL (0.0-0.6); Eosinophils % 1.2 %; Hematocrit 34.2 % (35.3-44.9); Hemoglobin 10.6 g/dL (11.5-15.4); Immature Granulocytes % 0.5 % (0-4); Lymphocytes # 0.8 K/mcL (0.6-4.6); Lymphocytes % 10.7 %; Mean Corpuscular Hemoglobin 32.4 pg (28.0-33.3); Mean Corpuscular Volume 104.6 fL (83.0-100.0); Mean Platelet Volume 9.5 fL (9.4-12.4); Monocytes # 0.6 K/mcL (0.0-1.3); Monocytes % 7.9 %; Platelet Count 323 K/mcL (140-400); Red Blood Count 3.27 M/mcL (3.82-4.97); Red Cell Distribution Width 13.5 % (11.5-14.5); Segmented Neutrophils % 79.6 %; White Blood Count 7.6 K/mcL (4.3-11.1)
[2019-10-18 16:05] LABS: Bacteria,Urine Few per hpf (None-Few); Bilirubin,Urine Negative (Negative); Blood,Urine Moderate (Negative); Clarity,Urine Turbid (Clear); Color,Urine Yellow (Yellow); Glucose,Urine (UA) Normal (Normal); Ketones,Urine Negative (Negative); Leukocyte Esterase,Urine Large (Negative); Nitrite,Urine Positive (Negative); Protein,Urine 100 mg/dL (Neg-Trace); Specific Gravity,Urine 1.012 (1.010-1.025); Squamous Epithelial Cell,Urine Many per lpf (None-Few); Urobilinogen,Urine Normal (Normal); WBC,Urine TNTC per hpf (0-3)
[2019-10-18 16:21] LABS: RBC,Urine Present per hpf (0-3)
[2019-10-18 16:27] LABS: Alanine Aminotransferase 11 Units/L (7-52); Albumin 3.4 g/dL (3.5-5.7); Albumin/Globulin Ratio 1.1 (1.1-2.2); Alkaline Phosphatase 62 Units/L (34-104); Aspartate Amino Transferase 9 Units/L (13-39); BUN/Creatinine Ratio 47 (6-26); Bilirubin,Direct 0.1 mg/dL (0.0-0.2); Bilirubin,Indirect 0.2 mg/dL (0.0-1.0); Bilirubin,Total 0.3 mg/dL (0.3-1.0); Blood Urea Nitrogen 32 mg/dL (8-23); Carbon Dioxide 34 mEq/L (23-29); Chloride 94 mEq/L (98-107); Globulin 3.2 g/dL (2.4-3.5); Glucose 93 mg/dL (70-105); Osmolality,Calculated 287 (280-300); Potassium 5.3 mEq/L (3.5-5.1); Sodium 135 mEq/L (136-145); Total Protein 6.6 g/dL (6.4-8.9); Troponin I < 0.03 ng/mL (< 0.04); eGFR For African Americans > 60 (> 60); eGFR For Non-African Americans > 60 (> 60)
[2019-10-18] MEDS ORDERED: Ampicillin 1,000 MG in 0.9 % Sodium Chloride Mini Bag 100 ML IVPB STA (16:38)
[2019-10-18] MEDS ORDERED: Ondansetron 4 MG/2 ML VIAL IVP PRN (17:12)
[2019-10-18] MEDS ORDERED: Naloxone 0.4 MG/ML INJ IVP PRN (17:12)
[2019-10-18] MEDS ORDERED: Ipratropium/Albuterol Neb 3 ML IH PRN (17:29)
[2019-10-18] MEDS: 0.9 % Sodium Chloride 1,000 ML IVC SCH (20:34)
[2019-10-18] MEDS: rOPINIRole 1 MG TABLET PO SCH (20:35)
[2019-10-18] MEDS: Primidone 50 MG TABLET PO SCH (20:35)
[2019-10-18] MEDS: Melatonin 3 MG TABLET PO SCH (20:35)
[2019-10-18] MEDS: Fluticasone Propionate Nasal 50 MCG/SPRAY BOTTLE NS SCH (22:06)
[2019-10-18] MEDS: Ampicillin/Sulbactam 1,500 MG in 0.9 % Sodium Chloride Mini Bag 100 ML IVPB SCH (22:57)
[2019-10-19] MEDS: Ipratropium/Albuterol Neb 3 ML IH SCH ×7 (02:54→23:30)
[2019-10-19 03:04] LABS: ABG Base Excess 13 mEq/L (-2 to 3); ABG HCO3 40 mEq/L (21-27); ABG Oxygen Saturation 88 % (95-98); ABG PCO2 68 mmHg (35-45); ABG PH 7.38 pH Units (7.32-7.45); ABG PO2 58 mmHg (85-104); ABG TCO2 42 mEq/L (20-26); Blood Gas FiO2 3.5 (1-15=lpm or21-100=%)
[2019-10-19] MEDS ORDERED: MethylPREDNISolone 40 MG/ML VIAL IVP ONE (03:16)
[2019-10-19 04:07] LABS: Adenovirus Not Detected (Not Detect); Bordetella Pertussis Not Detected (Not Detect); Coronavirus 229E Not Detected (Not Detect); Coronavirus HKU1 Not Detected (Not Detect); Coronavirus NL63 Not Detected (Not Detect); Coronavirus OC43 Not Detected (Not Detect); Human Metapneumovirus Not Detected (Not Detect); Human Rhinovirus/Enterovirus Not Detected (Not Detect); Influenza A Subtype 2009 H1 Not Detected (Not Detect); Influenza A Untypeable Not Detected (Not Detect); Influenza B Not Detected (Not Detect); Parainfluenza Virus 1 Not Detected (Not Detect); Parainfluenza Virus 2 Not Detected (Not Detect); Parainfluenza Virus 3 Not Detected (Not Detect); Parainfluenza Virus 4 Not Detected (Not Detect); Respiratory Syncytial Virus Not Detected (Not Detect)
[2019-10-19 04:08] LABS: Chlamydophila pneumoniae Not Detected (Not Detect); Mycoplasma pneumoniae Not Detected (Not Detect)
[2019-10-19] MEDS: Ampicillin/Sulbactam 1,500 MG in 0.9 % Sodium Chloride Mini Bag 100 ML IVPB SCH ×4 (05:36→22:25)
[2019-10-19 05:42] LABS: Basophils % 0.2 %; Eosinophils # 0.1 K/mcL (0.0-0.6); Hematocrit 35.4 % (35.3-44.9); Hemoglobin 10.9 g/dL (11.5-15.4); Immature Granulocytes % 0.7 % (0-4); Lymphocytes # 0.9 K/mcL (0.6-4.6); Lymphocytes % 11.1 %; Mean Corpuscular HGB Conc 30.8 g/dL (31.6-35.5); Mean Corpuscular Hemoglobin 31.9 pg (28.0-33.3); Mean Corpuscular Volume 103.5 fL (83.0-100.0); Mean Platelet Volume 9.7 fL (9.4-12.4); Monocytes # 0.5 K/mcL (0.0-1.3); Monocytes % 5.7 %; Neutrophils # 6.7 K/mcL (1.6-8.9); Platelet Count 323 K/mcL (140-400); Red Blood Count 3.42 M/mcL (3.82-4.97); Red Cell Distribution Width 13.4 % (11.5-14.5); Segmented Neutrophils % 81.3 %; White Blood Count 8.3 K/mcL (4.3-11.1)
[2019-10-19 06:02] LABS: BUN/Creatinine Ratio 53 (6-26); Blood Urea Nitrogen 21 mg/dL (8-23); Calcium 10.2 mg/dL (8.6-10.3); Carbon Dioxide 37 mEq/L (23-29); Chloride 97 mEq/L (98-107); Glucose 89 mg/dL (70-105); Magnesium 1.9 mg/dL (1.6-2.6); Osmolality,Calculated 292 (280-300); Potassium 4.7 mEq/L (3.5-5.1); Sodium 140 mEq/L (136-145); eGFR For African Americans > 60 (> 60); eGFR For Non-African Americans > 60 (> 60)
[2019-10-19] MEDS: Primidone 50 MG TABLET PO SCH ×2 (08:36→20:33)
[2019-10-19] MEDS: Fluticasone Propionate Nasal 50 MCG/SPRAY BOTTLE NS SCH ×2 (08:36→20:33)
[2019-10-19] MEDS: Cyanocobalamin (B-12) 1,000 MCG TABLET PO SCH (08:36)
[2019-10-19] MEDS: Acetaminophen 325 MG TABLET PO PRN ×2 (12:56→23:38)
[2019-10-19] MEDS: rOPINIRole 1 MG TABLET PO SCH (20:33)
[2019-10-19] MEDS: Melatonin 3 MG TABLET PO SCH (22:24)
[2019-10-20] MEDS: Ipratropium/Albuterol Neb 3 ML IH SCH ×5 (03:57→20:49)
[2019-10-20] MEDS: Ampicillin/Sulbactam 1,500 MG in 0.9 % Sodium Chloride Mini Bag 100 ML IVPB SCH ×4 (05:03→23:14)
[2019-10-20] MEDS ORDERED: Acetaminophen IV 1,000 MG/100 ML INFUS..BTL IVPB ONE (05:55)
[2019-10-20] MEDS ORDERED: NON-FORMULARY MEDICATION 1 EACH EACH (Rizatriptan Benzoate [Maxalt] 10 MG) PO PRN (07:44)
[2019-10-20 08:00] LABS: Basophils % 0.3 %; Eosinophils # 0.1 K/mcL (0.0-0.6); Eosinophils % 0.8 %; Hematocrit 32.5 % (35.3-44.9); Hemoglobin 10.1 g/dL (11.5-15.4); Immature Granulocytes % 0.7 % (0-4); Lymphocytes % 13.9 %; Mean Corpuscular HGB Conc 31.1 g/dL (31.6-35.5); Mean Corpuscular Hemoglobin 32.3 pg (28.0-33.3); Mean Corpuscular Volume 103.8 fL (83.0-100.0); Mean Platelet Volume 9.4 fL (9.4-12.4); Monocytes # 0.6 K/mcL (0.0-1.3); Monocytes % 7.9 %; Neutrophils # 5.6 K/mcL (1.6-8.9); Platelet Count 307 K/mcL (140-400); Red Blood Count 3.13 M/mcL (3.82-4.97); Red Cell Distribution Width 13.5 % (11.5-14.5); Segmented Neutrophils % 76.4 %; White Blood Count 7.3 K/mcL (4.3-11.1)
[2019-10-20 08:20] LABS: BUN/Creatinine Ratio 42 (6-26); Blood Urea Nitrogen 15 mg/dL (8-23); Calcium 9.7 mg/dL (8.6-10.3); Carbon Dioxide 37 mEq/L (23-29); Chloride 96 mEq/L (98-107); Glucose 104 mg/dL (70-105); Osmolality,Calculated 281 (280-300); Potassium 4.3 mEq/L (3.5-5.1); Sodium 135 mEq/L (136-145); eGFR For African Americans > 60 (> 60); eGFR For Non-African Americans > 60 (> 60)
[2019-10-20] MEDS: Cyanocobalamin (B-12) 1,000 MCG TABLET PO SCH (09:13)
[2019-10-20] MEDS: Primidone 50 MG TABLET PO SCH ×2 (09:13→21:12)
[2019-10-20] MEDS: Fluticasone Propionate Nasal 50 MCG/SPRAY BOTTLE NS SCH ×2 (09:14→21:39)
[2019-10-20] MEDS: Acetaminophen 325 MG TABLET PO PRN ×2 (09:14→21:11)
[2019-10-20 13:25] LABS: ABG Base Excess 13 mEq/L (-2 to 3); ABG HCO3 39 mEq/L (21-27); ABG Oxygen Saturation 88 % (95-98); ABG PCO2 54 mmHg (35-45); ABG PH 7.46 pH Units (7.32-7.45); ABG PO2 54 mmHg (85-104); ABG TCO2 40 mEq/L (20-26)
[2019-10-20] MEDS: Melatonin 3 MG TABLET PO SCH (21:11)
[2019-10-20] MEDS: rOPINIRole 1 MG TABLET PO SCH (21:11)
[2019-10-20] MEDS: Nystatin Cream 15 GM TUBE TP PRN (23:42)
[2019-10-21] MEDS: Ipratropium/Albuterol Neb 3 ML IH SCH ×7 (00:23→23:21)
[2019-10-21 00:42] LABS: Hematocrit 34.8 % (35.3-44.9); Hemoglobin 10.9 g/dL (11.5-15.4); Mean Corpuscular HGB Conc 31.3 g/dL (31.6-35.5); Mean Corpuscular Hemoglobin 31.6 pg (28.0-33.3); Mean Corpuscular Volume 100.9 fL (83.0-100.0); Mean Platelet Volume 9.4 fL (9.4-12.4); Platelet Count 334 K/mcL (140-400); Red Blood Count 3.45 M/mcL (3.82-4.97); Red Cell Distribution Width 13.5 % (11.5-14.5); White Blood Count 8.8 K/mcL (4.3-11.1)
[2019-10-21 00:59] LABS: BUN/Creatinine Ratio 40 (6-26); Blood Urea Nitrogen 18 mg/dL (8-23); Calcium 9.9 mg/dL (8.6-10.3); Carbon Dioxide 33 mEq/L (23-29); Chloride 96 mEq/L (98-107); Glucose 103 mg/dL (70-105); Magnesium 1.6 mg/dL (1.6-2.6); Osmolality,Calculated 280 (280-300); Sodium 134 mEq/L (136-145); eGFR For African Americans > 60 (> 60); eGFR For Non-African Americans > 60 (> 60)
[2019-10-21] MEDS: 0.9 % Sodium Chloride 1,000 ML IVC SCH (03:03)
[2019-10-21] MEDS: Ampicillin/Sulbactam 1,500 MG in 0.9 % Sodium Chloride Mini Bag 100 ML IVPB SCH (05:16)
[2019-10-21] MEDS: SUMAtriptan succinate 25 MG TABLET PO PRN ×2 (05:22→20:07)
[2019-10-21] MEDS: Primidone 50 MG TABLET PO SCH ×2 (09:23→20:07)
[2019-10-21] MEDS: Acetaminophen 325 MG TABLET PO PRN ×2 (09:23→20:06)
[2019-10-21] MEDS: Fluticasone Propionate Nasal 50 MCG/SPRAY BOTTLE NS SCH ×2 (09:23→20:14)
[2019-10-21] MEDS: Cyanocobalamin (B-12) 1,000 MCG TABLET PO SCH (09:24)
[2019-10-21] MEDS: Ertapenem 1,000 MG in 0.9 % Sodium Chloride Mini Bag 100 ML IVPB SCH (11:41)
[2019-10-21] MEDS: Nystatin Cream 15 GM TUBE TP PRN ×2 (11:41→20:14)
[2019-10-21] MEDS: Melatonin 3 MG TABLET PO SCH (20:07)
[2019-10-21] MEDS: rOPINIRole 1 MG TABLET PO SCH (20:07)
[2019-10-22] MEDS: Ipratropium/Albuterol Neb 3 ML IH SCH ×4 (04:46→15:59)
[2019-10-22] MEDS: Ertapenem 1,000 MG in 0.9 % Sodium Chloride Mini Bag 100 ML IVPB SCH (09:27)
[2019-10-22] MEDS: Cyanocobalamin (B-12) 1,000 MCG TABLET PO SCH (09:31)
[2019-10-22] MEDS: Primidone 50 MG TABLET PO SCH (09:32)
[2019-10-22] MEDS: Fluticasone Propionate Nasal 50 MCG/SPRAY BOTTLE NS SCH (09:32)
[2019-10-22] MEDS: Nystatin Cream 15 GM TUBE TP PRN (09:33)
[2019-10-22] MEDS: SUMAtriptan succinate 25 MG TABLET PO PRN (12:38)
[2019-10-22 14:32] VITALS: BP 96/60
== END 2019-10-22 17:33 | DRG 689 ==
LOC: EMEROOARM 14:17 → 3ANU 14:17 → SUATTDRO 18:24 → 3ANU 18:52
PROVIDERS: ADMIT Family Medicine; ATTEND Internal Medicine

== ENCOUNTER 2019-11-22 14:47 | Inpatient (IN) ==
[2019-11-22] MEDS ORDERED: 0.9 % Sodium Chloride 1,000 ML ONE ×2 (15:11→16:17)
[2019-11-22] MEDS ORDERED: 0.9 % Sodium Chloride 500 ML ONE (15:15)
[2019-11-22] MEDS ORDERED: 0.9 % Sodium Chloride 1,000 ML IVC ONE (15:17)
[2019-11-22] MEDS ORDERED: 0.9 % Sodium Chloride 500 ML IVC ONE ×2 (15:18→15:45)
[2019-11-22 15:42] LABS: Bilirubin,Urine Negative (Negative); Blood,Urine Negative (Negative); Clarity,Urine Turbid (Clear); Color,Urine Yellow (Yellow); Glucose,Urine (UA) Normal (Normal); Ketones,Urine Negative (Negative); Leukocyte Esterase,Urine Large (Negative); Nitrite,Urine Negative (Negative); PH,Urine 5.5 pH Units (5.0-8.0); Protein,Urine 30 mg/dL (Neg-Trace); Specific Gravity,Urine 1.019 (1.010-1.025); Urobilinogen,Urine Normal (Normal)
[2019-11-22 15:43] LABS: Hyaline Casts,Urine None Seen per lpf (None-Few); RBC,Urine 0-3 per hpf (0-3); Squamous Epithelial Cell,Urine Many per lpf (None-Few); WBC,Urine TNTC per hpf (0-3)
[2019-11-22] MEDS: Ertapenem 1,000 MG in 0.9 % Sodium Chloride Mini Bag 100 ML IVPB STA ×2 (15:48→16:49)
[2019-11-22 15:54] LABS: Bacteria,Urine Moderate per hpf (None-Few); Renal Epithelial Cells,Urine Moderate per hpf (None-Few)
[2019-11-22] MEDS ORDERED: *HR* Norepinephrine 4 MG/4 ML VIAL IVC ONE ×2 (16:01→18:49)
[2019-11-22] MEDS ORDERED: 0.9 % Sodium Chloride 250 ML ONE ×2 (16:01→18:49)
[2019-11-22] MEDS ORDERED: EPINEPHrine 1 MG/ML VIAL ONE ×3 (16:07→18:55)
[2019-11-22] MEDS: Norepinephrine 4 MG in 0.9 % Sodium Chloride 250 ML IVC SCH ×2 (16:10→22:17)
[2019-11-22 16:20] LABS: ABG Base Excess 2 mEq/L (-2 to 3); ABG HCO3 31 mEq/L (21-27); ABG Oxygen Saturation 82 % (95-98); ABG PCO2 69 mmHg (35-45); ABG PH 7.26 pH Units (7.32-7.45); ABG PO2 55 mmHg (85-104); ABG TCO2 33 mEq/L (20-26)
[2019-11-22] MEDS ORDERED: D5% in Water 250 ML ONE ×2 (16:33→18:55)
[2019-11-22] MEDS: EPINEPHrine 1 MG in D5% in Water 250 ML IVC SCH ×2 (16:38→23:31)
[2019-11-22] MEDS ORDERED: Azithromycin 500 MG in 0.9 % Sodium Chloride 250 ML IVPB ONE (16:51)
[2019-11-22 17:24] LABS: Troponin I 2.72 ng/mL (< 0.04)
[2019-11-22] MEDS ORDERED: Isovue-370 500 ML BOTTLE IVP ONE (17:26)
[2019-11-22 17:34] LABS: Albumin 3.2 g/dL (3.5-5.7); Albumin/Globulin Ratio 1.1 (1.1-2.2); Bilirubin,Direct 0.3 mg/dL (0.0-0.2); Bilirubin,Indirect 0.3 mg/dL (0.0-1.0); Bilirubin,Total 0.6 mg/dL (0.3-1.0); Calcium 8.3 mg/dL (8.6-10.3); Globulin 2.8 g/dL (2.4-3.5); Potassium 5.4 mEq/L (3.5-5.1)
[2019-11-22] MEDS ORDERED: 0.9 % Sodium Chloride 250 ML IVC ONE (17:55)
[2019-11-22] MEDS ORDERED: Naloxone 0.4 MG/ML INJ IVP PRN (18:10)
[2019-11-22 18:40] LABS: Basophils % 0.3 %
[2019-11-22 18:41] LABS: Basophils # 0.1 K/mcL (0.0-0.2); Hemoglobin 11.1 g/dL (11.5-15.4); Immature Granulocytes % 5.3 % (0-4); Lymphocytes # 1.4 K/mcL (0.6-4.6); Lymphocytes % 4.5 %; Mean Corpuscular HGB Conc 29.2 g/dL (31.6-35.5); Mean Corpuscular Volume 113.1 fL (83.0-100.0); Mean Platelet Volume 10.1 fL (9.4-12.4); Monocytes % 3.1 %; Neutrophils # 27.5 K/mcL (1.6-8.9); Nucleated Red Blood Cells 0.5 /100 WBC (0); Platelet Count 276 K/mcL (140-400); Red Blood Count 3.36 M/mcL (3.82-4.97); Red Cell Distribution Width 14.3 % (11.5-14.5); Segmented Neutrophils % 86.8 %
[2019-11-22 18:48] LABS: White Blood Count 31.7 K/mcL (4.3-11.1)
[2019-11-22] MEDS ORDERED: Vancomycin 1 EACH in 0.9 % Sodium Chloride 250 ML IVPB SCH (19:00)
[2019-11-22 19:03] LABS: Toxic Granulation Present (Not Present); Toxic Vacuolation Present (Not Present)
[2019-11-22 19:04] LABS: Large Platelets Present (Not Present); Macrocytosis Present (Not Present); Platelet Estimate Normal (Normal)
[2019-11-22] MEDS: Hydrocortisone Sodium Succ 100 MG/2 ML VIAL IVP SCH (23:07)
[2019-11-23] MEDS ORDERED: Insulin LISPRO 300 UNITS/3 ML VIAL SQ ONE (01:15)
[2019-11-23] MEDS: Norepinephrine 4 MG in 0.9 % Sodium Chloride 250 ML IVC SCH (02:17)
[2019-11-23] MEDS: EPINEPHrine 1 MG in D5% in Water 250 ML IVC SCH (04:00)
[2019-11-23 04:22] LABS: Basophils # 0.1 K/mcL (0.0-0.2); Basophils % 0.3 %; Hematocrit 40.4 % (35.3-44.9); Hemoglobin 11.3 g/dL (11.5-15.4); Lymphocytes # 0.8 K/mcL (0.6-4.6); Lymphocytes % 3.3 %; Mean Corpuscular Hemoglobin 32.5 pg (28.0-33.3); Mean Corpuscular Volume 116.1 fL (83.0-100.0); Mean Platelet Volume 9.6 fL (9.4-12.4); Monocytes # 0.6 K/mcL (0.0-1.3); Monocytes % 2.3 %; Neutrophils # 21.7 K/mcL (1.6-8.9); Nucleated Red Blood Cells 0.4 /100 WBC (0); Platelet Count 338 K/mcL (140-400); Red Blood Count 3.48 M/mcL (3.82-4.97); Red Cell Distribution Width 13.4 % (11.5-14.5); Segmented Neutrophils % 89.1 %; White Blood Count 24.4 K/mcL (4.3-11.1)
[2019-11-23 04:24] LABS: INR 1.3; Prothrombin Time 15.1 Seconds (9.4-12.1)
[2019-11-23 04:26] LABS: Activated Partial Thrombo Time 30.8 Seconds (26.0-36.0)
[2019-11-23 04:39] LABS: Albumin 3.2 g/dL (3.5-5.7); Albumin/Globulin Ratio 1.1 (1.1-2.2); Alkaline Phosphatase 149 Units/L (34-104); BUN/Creatinine Ratio 20 (6-26); Bilirubin,Total 0.4 mg/dL (0.3-1.0); Blood Urea Nitrogen 48 mg/dL (8-23); Calcium 8.3 mg/dL (8.6-10.3); Carbon Dioxide 30 mEq/L (23-29); Chloride 97 mEq/L (98-107); Globulin 2.9 g/dL (2.4-3.5); Glucose 208 mg/dL (70-105); Magnesium 2.2 mg/dL (1.6-2.6); Osmolality,Calculated 299 (280-300); Phosphorous 12.1 mg/dL (2.7-4.5); Potassium 5.7 mEq/L (3.5-5.1); Sodium 135 mEq/L (136-145); Total Protein 6.1 g/dL (6.4-8.9); Troponin I 8.24 ng/mL (< 0.04); Vancomycin,Trough 13 mcg/mL (5-10); eGFR For African Americans 24 (> 60); eGFR For Non-African Americans 19 (> 60)
[2019-11-23 04:52] LABS: Alanine Aminotransferase 3139 Units/L (7-52); Aspartate Amino Transferase > 3000 Units/L (13-39); Thyroid Stimulating Hormone 4.663 mcIU/mL (0.340-5.600)
[2019-11-23 04:57] LABS: Hepatitis B Surface Antigen Nonreactive (Nonreactive)
[2019-11-23] MEDS: Norepinephrine 8 MG in 0.9 % Sodium Chloride 250 ML IVC SCH ×2 (05:11→09:35)
[2019-11-23 05:14] LABS: Anisocytosis 1+ (Not Present); Macrocytosis Present (Not Present); Platelet Estimate Normal (Normal)
[2019-11-23 05:25] LABS: Hepatitis B Core IgM Nonreactive (Nonreactive)
[2019-11-23 05:26] LABS: Hepatitis C Virus Antibody Nonreactive (Nonreactive)
[2019-11-23 05:27] LABS: Hepatitis A Antibody IgM Nonreactive (Nonreactive)
[2019-11-23] MEDS ORDERED: EPINEPHrine 5 MG in D5% in Water 250 ML IVC SCH (05:30)
[2019-11-23] MEDS ORDERED: Vasopressin 40 UNIT in D5% in Water 100 ML IVC SCH (06:00)
[2019-11-23] MEDS ORDERED: *HR* Heparin 5,000 UNIT/ML VIAL SQ SCH (06:00)
[2019-11-23] MEDS ORDERED: Insulin LISPRO 300 UNITS/3 ML VIAL SQ SCH (06:00)
[2019-11-23] MEDS: Hydrocortisone Sodium Succ 100 MG/2 ML VIAL IVP SCH (08:04)
[2019-11-23] MEDS ORDERED: Ertapenem 1,000 MG in 0.9 % Sodium Chloride Mini Bag 100 ML IVPB SCH (09:00)
[2019-11-23] MEDS ORDERED: Azithromycin 250 MG TABLET PO SCH (09:00)
[2019-11-23] MEDS ORDERED: Azithromycin 500 MG in 0.9 % Sodium Chloride 250 ML IVPB SCH (09:00)
[2019-11-23] MEDS ORDERED: Ondansetron 4 MG/2 ML VIAL IVP PRN (15:20)
[2019-11-23] MEDS ORDERED: *HR* LORazepam 2 MG/ML VIAL IVP PRN (15:20)
[2019-11-23] MEDS ORDERED: *HR* FentaNYL (PF) 100 MCG/2 ML VIAL IVP PRN (15:37)
[2019-11-23 16:19] VITALS: BP 65/37
[2019-11-23] MEDS ORDERED: Aminoglycoside Consult 1 EACH MC ONE (16:29)
== END 2019-11-23 16:30 | disposition expired | DRG 871 ==
LOC: EMEROOARM 14:47 → ICNU 14:47
PROVIDERS: ADMIT Pediatrics; ATTEND Pediatrics